=== PATIENT | female | born 1945 | race Caucasian/White ===

== ENCOUNTER → 2016-09-28 | Outpatient (CLI) | payer OTHER, MEDICARE | LOC: FIMAGING 15:24 | PROVIDERS: ATTEND Orthopaedic Surgery | DX: M25.411 Effusion, right shoulder (principal); M24.011 Loose body in right shoulder; M75.81 Other shoulder lesions, right shoulder; M19.011 Primary osteoarthritis, right shoulder ==

== ENCOUNTER 2016-11-20 05:50 | Inpatient (IN) | payer OTHER, MEDICARE ==
[2016-11-14 09:42] LABS: % IMMATURE GRANULYOCYTES 0.2 % (0.0-1.1); ABSOLUTE IMMATURE GRANULOCYTES 0.01 10^3/uL (0.00-0.10); ADD DIFF? NO; ADD MORPH? NO; ADD SCAN? NO; ATYPICAL LYMPHOCYTE FLAG 10 (0-99); FRAGMENT RBC FLAG 0 (0-99); LEFT SHIFT FLG 0 (0-99); LIPEMIA HEMOLYSIS FLAG 80 (0-99); MEAN CELL HEMOGLOBIN 29.5 pg (27.9-34.1); MEAN CELL HEMOGLOBIN CONCENTR. 33.3 g/dL (32.4-36.7); MEAN CELL VOLUME 88.6 fL (81.5-99.8); MEAN PLATELET VOLUME 11.2 fL (8.7-11.7); PLATELET CLUMPS FLAG 10 (0-99); PLATELET COUNT 223 10^3/uL (150-400); RED BLOOD CELL COUNT 4.74 10^6/uL (4.18-5.33); RED CELL DISTRIBUTION WIDTH 12.8 % (11.5-15.2)
--- NOTE | 2016-11-19 19:19 | GHP ---
[f rep st] PREOP HISTORY AND PHYSICAL DATE OF ADMISSION: 11/20/2016 HISTORY OF PRESENT ILLNESS: The patient is a 71-year-old female who presents with progressive right shoulder osteoarthritis. She has pain, progressive limitation of motion and function, and this imp acts her activities of daily living. She has had physical therapy and responded just partially with regard to comfort and function. She has deep pain. She has limited range of motion. She has trie d appropriate conservative measures at this point. An MRI shows that she does have cuff tendinosis. No full-thickness tear. Advanced severe osteoarthritis of the glenohumeral joint. She has had a successful left total shoulder that is comfortable and functions well. She would like to proceed wi th a right total shoulder arthroplasty. PAST MEDICAL HISTORY: No current medical problems. MEDICATIONS: She is using Effexor 150 mg XR daily. SOCIAL HISTORY: She is a nonsmoker. ALLERGIES: She has no known drug allergies. PAST SURGICAL HISTORY: Her surgeries include a left total shoulder arthroplasty, a right knee scope , cervical fusions at C4-5, C5-6, and C6-7, appendectomy, a wrist arthroplasty. REVIEW OF SYSTEMS: Negative for cardiopulmonary disease. PHYSICAL EXAM: GENERAL: The patient is a well-developed, well-nourished female, in no apparent dis tress. HEAD AND NECK: Normocephalic, atraumatic. CHEST: Clear. CARDIOVASCULAR: Regular rate an d rhythm. ABDOMEN: Soft. NEUROLOGICAL: She is alert, oriented x3. MUSCULOSKELETAL: Examination of the right shoulder shows about 120 degrees of forward flexion. She has about 30 degrees of exte rnal rotation. There is glenohumeral crepitus and pain. She has some discomfort on initiation of a bduction, external rotation, and supraspinatus testing. She has limited abduction of about 60 degre es. NEUROVASCULAR: Intact. SKIN: Intact. IMAGING: X-ray show us flattening of the humeral head, eems-mg-[id number] contact and degenerative lippin g, inferior osteophytes. IMPRESSIONS: Right shoulder osteoarthritis. PROCEDURE: Right shoulder arthroplasty. CONSENT: Benefits and risks of surgery have been reviewed with the patient, including the risk of i nfection, damage to blood vessels or nerves, failure or loosening of the components and need for rev ision, instability of the shoulder joint or limited motion. She has done well with her opposite dennis franklin. She has signed a consent form, wishes to proceed. /[id number]/MODL
[2016-11-20] MEDS ORDERED: ceFAZolin 2 GM/DEXTROSE 100 ML IV ONE (06:00)
[2016-11-20] MEDS ORDERED: CHLORHEXIDINE GLUC HIBICLENS 118 ML BTL TP ONE (06:00)
[2016-11-20] MEDS ORDERED: LIDOCAINE 1% 5 ML SDV ID PRN (06:20)
[2016-11-20] MEDS ORDERED: LR 1,000 ML IV ONE (06:20)
[2016-11-20] MEDS ORDERED: LIDOCAINE 1% 5 ML SDV ONE (06:23)
[2016-11-20] MEDS ORDERED: BUPIVACAINE/EPI 0.5% 30 ML SDV ONE ×2 (06:27→06:45)
[2016-11-20] MEDS ORDERED: POLYMYXIN B SULFATE 500,000 UNIT/10 ML SYR IRR ONE ×2 (06:28→06:45)
[2016-11-20] MEDS ORDERED: BACITRACIN 50,000 UNITS/10 ML SYR IRR ONE ×2 (06:28→06:45)
[2016-11-20] MEDS ORDERED: fentaNYL 100 MCG/2 ML INJ ONE ×2 (06:59→09:24)
[2016-11-20] MEDS ORDERED: MIDAZOLAM 2 MG/2 ML VIAL ONE ×2 (07:01→07:07)
[2016-11-20] MEDS ORDERED: PROPOFOL/EMULSION 500 MG/50 ML BOTTLE IV ONE (07:02)
[2016-11-20] MEDS ORDERED: ROPI/epINEPH/KETOROLAC IU ONE (08:00)
[2016-11-20] MEDS ORDERED: ONDANSETRON 4 MG/2 ML VIAL ONE (08:25)
[2016-11-20] MEDS ORDERED: clonIDINE 1 MG/10 ML VIAL EP ONE (08:25)
[2016-11-20] MEDS ORDERED: ROCURONIUM 50 MG/5 ML VIAL ONE (08:25)
[2016-11-20] MEDS ORDERED: PHENYLEPHRINE HCL 100 MCG/ML SYR ONE (08:25)
[2016-11-20] MEDS ORDERED: ACETAMINOPHEN 325 MG TAB PO PRN (09:56)
[2016-11-20] MEDS ORDERED: LACTULOSE 20 GM/30 ML UDCUP PO PRN (09:56)
[2016-11-20] MEDS ORDERED: POLYETHYLENE GLYCOL 3350 17 GM PKT PO PRN (09:56)
[2016-11-20] MEDS ORDERED: MAGNESIUM HYDROXIDE 30 ML UDCUP PO PRN (09:56)
[2016-11-20] MEDS ORDERED: OXYCODONE/APAP 5/325 TAB PO PRN (09:56)
[2016-11-20] MEDS ORDERED: TEMAZEPAM 15 MG CAP PO PRN (09:56)
[2016-11-20] MEDS ORDERED: BISACODYL 10 MG SUPP PR PRN (09:56)
[2016-11-20] MEDS ORDERED: ONDANSETRON 4 MG/2 ML VIAL IVP PRN (09:56)
[2016-11-20] MEDS ORDERED: D5W 1/2 NS W/ 20 KCl/L 1,000 ML IV SCH (10:00)
--- NOTE | 2016-11-20 10:21 | GOP ---
[f rep st] OPERATIVE REPORT DATE OF OPERATION: 11/20/2016 SURGEON: Jerad Kearns MD STORY WRITER: Thien Kruger, Chan.[email or web address].Brittany., L.S.A. ANESTHESIOLOGIST: Daphne Johnson D.O. PREOPERATIVE DIAGNOSIS: Right shoulder osteoarthritis. POSTOPERATIVE DIAGNOSIS: Right shoulder osteoarthritis. PROCEDURE PERFORMED: Right total shoulder arthroplasty. FINDINGS: DESCRIPTION OF PROCEDURE: The patient was taken to the operating room, placed supine on the operati ng table and placed under general anesthetic. She was on a standard operating table that we placed in a semi Bojorquez position with a Sol hogshead dumper and we moved her body to the right side of the table. All bony prominences were well padded. I used a padded post along her right chest wall. T he positioning of the table allowed extension of her shoulder. The shoulder and arm were prepped an d draped free in the usual fashion with a chlorhexidine prep. I made a deltopectoral incision from the coracoid process to a point in the anterior midline of the upper humerus and dissected through subcutaneous tissue. I mobilized this layer and found the delto pectoral groove. The cephalic vein was retracted laterally with the deltoid and blunt dissection ca rried down to the humeral head. I incised through the deltopectoral fascia next to the conjoined te ndon and exposed the humeral head. I localized the biceps just above the pectoralis, opened the she ath and I tenodesed the biceps by placing a #2 FiberWire through the tendon and through the surround ing sheath, transected the tendon just above that and ultimately removed the tendon from the superio r labrum too. On the lesser tuberosity, I made a vertical cut through capsule as well as the subsca pularis tendon. I carried this incision into the rotator interval. I tagged the edge of this. I d ebrided the undersurface of this layer of scarred capsule and synovitis. I mobilized the subscapula ris as a muscle tendon unit with good mobility, dissecting along the anterior glenoid a bit. I then used a neck cutting guide to design a humeral neck cut with about 20 degrees of retroversion. Afte r this cut was made, I was able to retract the head laterally and by finger dissection and palpation of the nerve inferior to the capsule, I did inferior capsular release. This allowed me to bring th e humeral head up into the wound. I entered the canal with an awl. I reamed with an 8 mm reamer, 9 mm reamer and 10 mm reamer. I broached with an 8 and a 10. The 10 was a very good fit and I left the broach in place to protect the bone. I placed anterior and posterior glenoid retractors. I ovidio rided degenerative labrum. I sized the glenoid at a 40 and I did appropriate surface reaming and PE G hole preparation. These were dried. I used a 40 crosslink polyethylene anchor peg glenoid with a little cement in the peripheral peg holes. This was an excellent fit. I then drilled anterior hum eral neck bone transosseous tunnels so that I could place four #2 FiberWire. I removed the trial, I irrigated the canal with antibiotics and I placed the size 10 stem in 20 degrees of retroversion. This was an excellent Press-Fit stem. I then did trial reductions. I chose a size 44 head eccentric 18 mm thick and this was placed over the trunnion and the shoulder was reduced. I then mattressed the FiberWire sutures through the ante rior subscapularis and this provided a nice soft tissue repair and allowed 20-30 degrees of external rotation. I also repaired the rotator interval with hpvoqb-hr-qjgro suture of #2 FiberWire. Irrigation was used. I closed the wound in layers with the deltoid fascia as well as subcutaneous w ith 3-0 Monocryl, and the skin was closed with a running 3-0 Monoderm reinforced with glue, Telfa an d an op site. The wound was dried so I did not place a drain. There were no complications. The estimated blood loss was 25 mL. No drains. Specimens include excised bone. All counts correct . The patient was taken in stable condition to recovery. She is in a sling. SUMMARY OF COMPONENTS: This is a DePuy global shoulder. The humeral component is a size 10 Press-F it. The head is a 44 x 18 eccentric head. The glenoid is 40 cross length polyethylene anchor peg c omponent. My special education educational assistant, Thien Kruger, was a medical necessity for this total shoulder for soft tiss ue retraction and arm positioning. OPERATIVE INDICATIONS: The patient is a 71-year-old female who has had progressive severe osteoarth ritis of the right shoulder. This is impacting her activities of daily living. She has pain and li mited motion. She has done appropriate therapies, including extensive physical therapy. X-rays dennis w tqtd-[id number] glenohumeral wear. MRI shows her extensive glenohumeral arthritis with some cuff ten dinosis, but no full-thickness tear. She will proceed now for a right total shoulder arthroplasty. /[id number]/MODL
[2016-11-20] MEDS: KETOROLAC 15 MG/1 ML SDV IVP SCH ×2 (12:11→17:19)
[2016-11-20] MEDS: ceFAZolin 2 GM/DEXTROSE 100 ML IV SCH ×2 (14:10→22:07)
[2016-11-20 14:24] VITALS: RESP 16
[2016-11-20] MEDS ORDERED: DOCUSATE SODIUM 100 MG CAP PO SCH (21:00)
[2016-11-20] MEDS: SENNOSIDES/DOCUSATE SODIUM TAB PO SCH (22:10)
[2016-11-20] MEDS: CHOLECALCIFEROL VIT D3 2,000 UNITS TAB/CAP PO SCH (22:10)
[2016-11-21] MEDS: KETOROLAC 15 MG/1 ML SDV IVP SCH ×2 (00:14→06:23)
[2016-11-21] MEDS: SENNOSIDES/DOCUSATE SODIUM TAB PO SCH (08:20)
[2016-11-21] MEDS: CHOLECALCIFEROL VIT D3 2,000 UNITS TAB/CAP PO SCH (08:21)
[2016-11-21] MEDS: HYDROCODONE/APAP 5/325 TAB PO PRN ×2 (08:24→12:42)
--- NOTE | 2016-11-21 08:36 | SOAPPROG ---
SOAP Progress Note Assessment/Plan: Assessment: 11/21/16 POD#1 R TSA, pain controlled with hydrocodone Plan: 11/21/16 08:34 PT/OT then home, home PT then out pt, [facility], sling Objective: Vital Signs Temp Pulse Resp BP Pulse Ox 37.0 C 56 L 16 128/74 H 97 11/21/16 07:37 11/21/16 07:37 11/21/16 07:37 11/21/16 07:37 11/21/16 07:37 Laboratory Results 11/14/16 09:20 11/20/16 11/21/16 11/22/16 05:59 05:59 05:59 Intake Total 3260 Output Total 2240 Balance 1020 ICD10 Worksheet Patient Problems: Problems Problem Status Onset Degenerative joint disease of shoulder region Acute
[2016-11-21] MEDS ORDERED: VENLAFAXINE XR 150 MG CAP PO SCH (09:00)
--- NOTE | 2016-11-21 09:58 | PDIAF ---
- Diagnosis Code Status: Full Code - Medication Management Discharge Medications: Medications to Continue on Transfer Herbals/Supplements -Info Only 1 ea PO DAILY #0 ea 01/20/14 [Last Taken 11/13/16 ] Venlafaxine Xr [Effexor Xr] 150 mg PO DAILY #0 cap 01/20/14 [Last Taken 05:30] Cholecalciferol (Vitamin D3) [Vitamin D3] 2,000 unit PO BID 11/08/16 [Last Taken 11/13/16] Multivitamins [Multivitamin (*)] 1 each PO DAILY 11/08/16 [Last Taken 11/13/16] Hydrocodone/APAP 5/325 [[place] 5/325 (*)] 1 - 2 tab PO Q3HRS PRN #0 tab 11/21/16 [Last Taken Unknown] Discharge Medications: Refer to the Discharge Home Medication list for PRN reason. - Orders Services needed: Home Care, Physical Therapy Home Care Face to Face: I certify that this patient was under my care and that I had the required hlnw-wl-[id number] encounter meeting the encounter requirements on the discharge day. My findings support the fact that the patient is homebound as defined in CMS Chapter 7 Medicare Benefits Manual 30.1.1, The condition of the patient is such that there exists a normal inability to leave home and consequently, leaving home would require a considerable and taxing effort. - Follow Up Care Current Providers and Referrals: Arley Pantoja MD [Primary Care Provider] -
--- NOTE | 2016-11-21 12:09 | PDIAF ---
- Diagnosis Code Status: Full Code - Medication Management Discharge Medications: Medications to Continue on Transfer Herbals/Supplements -Info Only 1 ea PO DAILY #0 ea 01/20/14 [Last Taken 11/13/16 ] Venlafaxine Xr [Effexor Xr] 150 mg PO DAILY #0 cap 01/20/14 [Last Taken 05:30] Cholecalciferol (Vitamin D3) [Vitamin D3] 2,000 unit PO BID 11/08/16 [Last Taken 11/13/16] Multivitamins [Multivitamin (*)] 1 each PO DAILY 11/08/16 [Last Taken 11/13/16] Hydrocodone/APAP 5/325 [[place] 5/325 (*)] 1 - 2 tab PO Q3HRS PRN #0 tab 11/21/16 [Last Taken Unknown] Discharge Medications: Refer to the Discharge Home Medication list for PRN reason. - Orders Services needed: Home Care, Physical Therapy Home Care Face to Face: I certify that this patient was under my care and that I had the required [id number]-oe-[id number] encounter meeting the encounter requirements on the discharge day. My findings support the fact that the patient is homebound as defined in CMS Chapter 7 Medicare Benefits Manual 30.1.1, The condition of the patient is such that there exists a normal inability to leave home and consequently, leaving home would require a considerable and taxing effort. Additional: For home PT to start 11/21/16, COntinue the pateint with passive flexion and exteranl rotation exercises. In the erect postiion, the patient can use overhead colin to increase passive flexion and continue to use the arm for gentle living activities. Dismiss the patient once 90-120 degrees of passive flexion and external rotation of 10-15 degrees is achieved. Instruct patient to continue exercises 3-4 times a day. - Follow Up Care Current Providers and Referrals: Arley Pantoja MD [Primary Care Provider] - Jerad Kearns MD [Medical Doctor] -
[2016-11-21 12:49] VITALS: BP 139/79; PULSE 60; TEMP 98.1; O2SAT 94
== END 2016-11-21 13:57 | disposition home health service (06) | DRG 483 ==
LOC: F3N 05:50
PROVIDERS: ADMIT Family Medicine; ATTEND Orthopaedic Surgery
PROC: 0RRJ0JZ Replacement of Right Shoulder Joint with Synthetic Substitute, Open Approach (ICD-10-PCS; principal; 2016-11-20 07:15)
DX: M19.011 Primary osteoarthritis, right shoulder (principal); Z98.1 Arthrodesis status
CPT/HCPCS: 97161-GP; 97165-GO; C1713; G8978-GP-CI; G8979-GP-CI; G8980-GP-CI; G8987-GO-CI; G8988-GO-CI; G8989-GO-CI; J0171; J0690; J0735; J1885; J2250; J2370; J2405; J2704; J2795; J3010

== ENCOUNTER → 2017-02-16 | Outpatient (CLI) | payer OTHER, MEDICARE | LOC: BMCIMAGING 15:11 | PROVIDERS: ATTEND Family Medicine | DX: Z12.31 Encounter for screening mammogram for malignant neoplasm of breast (principal); Z80.3 Family history of malignant neoplasm of breast | CPT/HCPCS: G0202 ==

== ENCOUNTER → 2017-03-07 | Outpatient (CLI) | payer OTHER, MEDICARE | LOC: BRMIMAGING 11:09 | PROVIDERS: ATTEND Family Medicine | DX: Z13.820 Encounter for screening for osteoporosis (principal); Z78.0 Asymptomatic menopausal state ==

== ENCOUNTER 2017-06-06 11:17 | Inpatient (IN) | payer OTHER, MEDICARE ==
[2017-06-06] MEDS ORDERED: ONDANSETRON 4 MG/2 ML VIAL IVP PRN (12:11)
[2017-06-06] MEDS ORDERED: BISACODYL 10 MG SUPP PR PRN (12:45)
[2017-06-06] MEDS ORDERED: MAGNESIUM HYDROXIDE 30 ML UDCUP PO PRN (12:45)
[2017-06-06] MEDS ORDERED: POLYETHYLENE GLYCOL 3350 17 GM PKT PO PRN (12:45)
[2017-06-06] MEDS ORDERED: LACTULOSE 20 GM/30 ML UDCUP PO PRN (12:45)
[2017-06-06] MEDS: HYDROmorphONE/DILAUDID 1 MG/ML INJ IVP PRN ×6 (13:13→23:03)
[2017-06-06 13:24] LABS: PLATELET COUNT 200 10^3/uL (150-400)
[2017-06-06] MEDS ORDERED: ALTEPLASE 2 MG VIAL IVP PRN (16:36)
--- NOTE | 2017-06-06 16:39 | PDGENHP ---
History and Physical - Chief Complaint Acute knee pain - History of Present Illness Primary care provider: Dr. Arley Pantoja Primary orthopedist: Dr. Jerad Kearns HPI: 71-year-old female presenting with acute knee pain characterized as sharp with associated swelling, located in the right knee, with onset of symptoms on the day prior to this presentation and duration persistent thereafter. She reports the symptoms are exacerbated by bearing weight on the leg, reducing her overall ambulatory bloody. She reports that there was marginal improvement with joint aspiration. She has been attempting to manage the pain with Rodanthe at home, but this has been ineffective. She underwent a meniscal surgery 1 week ago and was initially doing very well postoperatively, x5 days, and then began experiencing the aforementioned symptoms. She was seen in the outpatient setting by Dr. Jerad Kearns on 06/05/2017, aspirate was taken, and the results were available today which demonstrated likely septic arthritis. History Information - Allergies/Home Medication List Allergies/Adverse Reactions: No Known Allergies Allergy (Verified 11/10/16 13:29) Home Medications: Multivitamins [Multivitamin (*)] 1 each PO DAILY 11/08/16 [Last Taken 06/05/17] Cholecalciferol Vit D3 [Vitamin D3 2000 units tab (OTC)] 2,000 units PO BID 08/22 [Last Taken 06/05/17] Venlafaxine Xr [Effexor Xr 75MG (*)] 150 mg PO DAILY 06/06/17 [Last Taken ] I have personally reviewed and updated: family history, medical history, social history, surgical history - Past Medical History Additional medical history: Severe osteoarthritis. Depression. Prediabetes - Surgical History Additional surgical history: Right total shoulder arthroscopy. Left total shoulder arthroscopy. Right total knee arthroscopy. C4-C7 fusion. Appendectomy. Risk surgery. Meniscal surgery 1 week ago right leg - Family History Additional family history: No family history of venous thromboembolism, mother with breast cancer - Social History Smoking Status: Never smoked Alcohol Use: Occasionally Drug Use: None Additional social history: Normally independent in her ADLs Review of Systems Review of Systems: ROS: 10pt was reviewed & negative except for what was stated in HPI & below Muscolosketal: Reports: joint swelling (Right knee pain) Physical Exam Physical Exam: Temp Pulse Resp BP Pulse Ox 36.4 C 65 20 99/61 L 93 06/06/17 16:04 06/06/17 16:04 06/06/17 16:04 06/06/17 16:04 06/06/17 16:04 O2 (L/minute) 2 Constitutional: no apparent distress, appears nourished, uncomfortable (Right knee), No not in pain (Right knee) Eyes: PERRL, anicteric sclera, EOMI Ears, Nose, Mouth, Throat: moist mucous membranes, hearing normal, ears appear normal, no oral mucosal ulcers Cardiovascular: regular rate and rhythym, no murmur, rub, or gallop, No edema Respiratory: no respiratory distress, no rales or rhonchi, clear to auscultation Gastrointestinal: normoactive bowel sounds, soft, non-tender abdomen, no palpable masses Genitourinary: no bladder fullness, no bladder tenderness Skin: other (No erythema or ecchymoses extending beyond the bandage site) Musculoskeletal: other (Limited range of motion right knee secondary to pain, limited flexion at the right hip secondary to pain in the knee, full range of motion right ankle) Neurologic: AAOx3, sensation intact bilaterally (Right distal lower extremity), No facial droop Psychiatric: interacting appropriately, not anxious, not encephalopathic, thought process linear Lab Data & Imaging Review 06/06/17 12:43 06/06/17 12:43 WBC 10.04 10^3/uL (3.80-9.50) H 06/06/17 12:43 RBC 4.33 10^6/uL (4.18-5.33) 06/06/17 12:43 Hgb 12.8 g/dL (12.6-16.3) 06/06/17 12:43 Hct 37.0 % (38.0-47.0) L 06/06/17 12:43 MCV 85.5 fL (81.5-99.8) 06/06/17 12:43 MCH 29.6 pg (27.9-34.1) 06/06/17 12:43 MCHC 34.6 g/dL (32.4-36.7) 06/06/17 12:43 RDW 14.1 % (11.5-15.2) 06/06/17 12:43 Plt Count 200 10^3/uL (150-400) 06/06/17 12:43 MPV 11.9 fL (8.7-11.7) H 06/06/17 12:43 Neut % (Auto) 89.6 % (39.3-74.2) H 06/06/17 12:43 Lymph % (Auto) 3.8 % (15.0-45.0) L 06/06/17 12:43 [place] % (Auto) 6.0 % (4.5-13.0) 06/06/17 12:43 Eos % (Auto) 0.0 % (0.6-7.6) L 06/06/17 12:43 Baso % (Auto) 0.2 % (0.3-1.7) L 06/06/17 12:43 Nucleat RBC Rel Count 0.0 % (0.0-0.2) 06/06/17 12:43 Absolute Neuts (auto) 9.00 10^3/uL (1.70-6.50) H 06/06/17 12:43 Absolute Lymphs (auto) 0.38 10^3/uL (1.00-3.00) L 06/06/17 12:43 Absolute Monos (auto) 0.60 10^3/uL (0.30-0.80) 06/06/17 12:43 Absolute Eos (auto) 0.00 10^3/uL (0.03-0.40) L 06/06/17 12:43 Absolute Basos (auto) 0.02 10^3/uL (0.02-0.10) 06/06/17 12:43 Absolute Nucleated RBC 0.00 10^3/uL (0-0.01) 06/06/17 12:43 Immature Gran % 0.4 % (0.0-1.1) 06/06/17 12:43 Immature Gran # 0.04 10^3/uL (0.00-0.10) 06/06/17 12:43 Sodium 135 mEq/L (134-144) 06/06/17 12:43 Potassium 4.4 mEq/L (3.5-5.2) 06/06/17 12:43 Chloride 100 mEq/L (97-110) 06/06/17 12:43 Carbon Dioxide 29 mEq/l (22-31) 06/06/17 12:43 Anion Gap 6 mEq/L (8-16) L 06/06/17 12:43 BUN 19 mg/dL (7-23) 06/06/17 12:43 Creatinine 0.5 mg/dL (0.6-1.0) L 06/06/17 12:43 Estimated GFR > 60 06/06/17 12:43 Glucose 141 mg/dL (70-100) H 06/06/17 12:43 Calcium 9.6 mg/dL (8.5-10.4) 06/06/17 12:43 Assessment & Plan Assessment: 71-year-old female presents with suspected septic arthritis Plan: 1. Septic arthritis. Acute, new problem this provider, further workup indicated. Suspected, evidenced [place] [address], RBC count of 9000, 98% segmented neutrophils -Gram stain with white blood cells, culture pending -get CBC/Blood Cx -postop day [address] Jerad Kearns -infectious Disease consultation appreciated -continue on IV vancomycin -pain management with IV and oral Dilaudid, bowel regimen ordered -physical and occupational therapy, evaluate for home care versus intermediate facility -appreciate ongoing orthopedics consultation and wound recommendations 2. Depression. Chronic, no recent exacerbations, continue venlafaxine 3. Pre-DM. Reviewed outside records (05/22/17 A1c 6.1%, Cr 0.7) -reassess BMP Diet. Regular Prophylaxis. High risk patient, SCDs today and Lovenox 40 beginning tomorrow Code. Full Disposition. Anticipated discharge is 06/07, pending therapy evaluations as outlined above, if patient requires more intensive therapy in order to facilitate a safe discharge, plans will be adjusted tomorrow. Discussed with Cecy Mcadams, hospitalist provider, she has assigned patient to me for evaluation.
[2017-06-06] MEDS: ACETAMINOPHEN 325 MG TAB PO PRN (18:34)
[2017-06-06] MEDS ORDERED: IBUPROFEN 600 MG TAB PO ONE (19:39)
[2017-06-06] MEDS: CHOLECALCIFEROL VIT D3 2,000 UNITS TAB/CAP PO SCH (19:59)
[2017-06-06] MEDS: SENNOSIDES/DOCUSATE SODIUM TAB PO SCH (19:59)
[2017-06-06] MEDS: HYDROmorphONE/DILAUDID 2 MG TAB PO PRN (21:08)
[2017-06-06] MEDS: ceFAZolin 2 GM/DEXTROSE 100 ML IV SCH (22:23)
--- NOTE | 2017-06-07 00:01 | GCON ---
[f rep st] CONSULTATION INFECTIOUS DISEASES CONSULTATION DATE OF CONSULTATION: 06/06/2017 REFERRING PHYSICIAN: Jerad Kearns MD REASON FOR CONSULTATION: Right knee postoperative infection. HISTORY OF PRESENT ILLNESS: Patient is a 71-year-old female, who underwent arthroscopic debridement of the right knee for meniscal disease approximately 1 week ago. Patient was doing well postoperativ france until yesterday when she developed increasing right knee pain with swelling. She did not note ov erlying erythema. She noted a small drop of blood from one of her surgical incisions, but no purulen ce. She was seen by Dr. Kearns yesterday and noted to have a knee effusion. Her knee effusion was asp irated, yielding 57,189 white blood cells with 98% neutrophils. Gram stain was negative of that spec imen with cultures now showing growth of Staphylococcus aureus. This morning, patient had progressiv e pain in her knee such that it limited weightbearing. Based on the synovial fluid findings, patient was taken for incision and drainage, which was performed in an outpatient surgery center earlier topino singh. Postoperatively, the patient had significant pain requiring hospitalization. She has not experi enced fevers, chills, or constitutional symptoms. No nausea, vomiting, or diarrhea. No prior histor y of significant infection or MRSA. Patient received a dose of ceftriaxone earlier today at the [facility]. Given the above findings, I am now asked to assist in her ongoing managem ent. PAST MEDICAL HISTORY: Depression. PAST SURGICAL HISTORY: As above, bilateral shoulder replacement, cervical fusion. CURRENT MEDICATIONS: Ceftriaxone 2 g x1 at surgery center, vitamin D 2000 units p.o. b.i.d., Lovenox 40 mg subcu daily, Dilaudid as needed for pain, multivitamin p.o. daily, Senokot 1-2 p.o. b.i.d., Ef fexor XR 150 mg p.o. daily. ALLERGIES: No known drug allergies. SOCIAL HISTORY: Patient does not smoke and rarely uses alcohol. No history of drug use. FAMILY HISTORY: Diabetes mellitus. REVIEW OF SYSTEMS: Outside that noted in the HPI, remainder of 10-system review is unremarkable. PHYSICAL EXAMINATION: VITAL SIGNS: Temperature 36.4, heart rate 65, respiratory rate 20, blood pres sure 99/61, oxygen saturation 93% on 2 L. GENERAL: Patient is well nourished and well developed, in no acute distress. She appears nontoxic. HEENT: There is no scleral icterus, conjunctival injecti on, or conjunctival petechiae. Oropharynx is clear without lesions. Dentition is in good repair. T here is no nasal discharge. There is no tenderness over the frontal, maxillary, or mastoid area. NE CK: Supple without lymphadenopathy or palpable thyromegaly. CHEST: Clear to auscultation bilateral ly without adventitious sounds. Respiratory effort is normal. CARDIOVASCULAR: Regular rate and rhy thm without murmurs, gallops, or rubs. ABDOMEN: Soft, nontender, nondistended. There is no palpabl e organomegaly. Bowel sounds are present. MUSCULOSKELETAL: The right knee is dressed postoperative ly. ROBERT drain x2 in place with bloody output. SKIN: No rashes are present. No stigmata of endocard itis are present. SKIN: Warm and dry to touch. NEUROLOGIC: Patient is alert and interacts appropr iately with examiner. Cranial nerves 2-12 are grossly intact. Sensation is grossly intact. LYMPHAT ICS: No cervical or supraclavicular nodes palpable. LABORATORY DATA: White blood cell count 10.0, hematocrit 37.0, platelets 200, neutrophils 90%. Seru m creatinine 0.5. Synovial fluid findings as outlined in the HPI. Synovial fluid culture from 06/05 showing growth of Staphylococcus aureus with susceptibility pending. IMPRESSION: Right knee septic arthritis post arthroscopy due to Staphylococcus aureus: Patient is n ow status post incision and drainage. Most likely, this will be methicillin-sensitive Staphylococcus aureus as no clear risk factors for methicillin-resistant Staphylococcus aureus other than surgical procedure. Will treat with cefazolin pending culture data. Anticipate 4-week course of IV antibioti cs. RECOMMENDATIONS: 1. Cefazolin 2 g IV q.8 hours. 2. PICC line in a.m. 3. Plan 4 weeks of IV antibiotic therapy post incision and drainage; discharge planning was informed of patient's need for IV antibiotics. 4. Risks and benefits of PICC line and IV antibiotic use were discussed with patient today. Thank you for this consultation. We will continue to follow patient with you. /[id number]/MODL
[2017-06-07] MEDS: HYDROmorphONE/DILAUDID 2 MG TAB PO PRN (02:54)
[2017-06-07] MEDS: HYDROmorphONE/DILAUDID 1 MG/ML INJ IVP PRN ×2 (02:55→04:57)
[2017-06-07] MEDS: ceFAZolin 2 GM/DEXTROSE 100 ML IV SCH ×3 (04:57→22:08)
[2017-06-07 05:08] LABS: PLATELET COUNT 189 10^3/uL (150-400)
--- NOTE | 2017-06-07 07:39 | SOAPPROG ---
SOAP Progress Note Assessment/Plan: Assessment: POD#1 wash out for septic right knee, drains are working, knee very painful, cefazolin for staph Plan: 06/07/17 07:36 Abx, continue drains, oral pain meds:oxycodone, toradol is fine with me Objective: Vital Signs Temp Pulse Resp BP Pulse Ox 36.9 C 77 14 98/62 L 97 06/07/17 03:12 06/07/17 03:12 06/07/17 03:12 06/07/17 03:12 06/07/17 03:12 Laboratory Results 06/07/17 04:25 06/07/17 04:25 06/06/17 06/07/17 06/08/17 05:59 05:59 05:59 Intake Total 400 Output Total 1500 Balance -1500 400 ICD10 Worksheet Patient Problems: Problems Problem Status Onset Degenerative joint disease of shoulder region Acute
[2017-06-07] MEDS ORDERED: oxyCODONE IR 5 MG TAB PO PRN (07:53)
[2017-06-07] MEDS ORDERED: Herbals/Supplements -Info Only PO SCH (09:00)
[2017-06-07] MEDS ORDERED: VENLAFAXINE XR 75 MG CAP PO SCH (09:00)
[2017-06-07] MEDS: MULTIVITAMINS 1 EACH TAB PO SCH (09:39)
[2017-06-07] MEDS: CHOLECALCIFEROL VIT D3 2,000 UNITS TAB/CAP PO SCH ×2 (09:39→20:14)
[2017-06-07] MEDS: SENNOSIDES/DOCUSATE SODIUM TAB PO SCH ×2 (09:39→20:14)
[2017-06-07] MEDS: ENOXAPARIN 40 MG/0.4 ML SYR SC SCH (09:39)
[2017-06-07] MEDS: KETOROLAC 15 MG/1 ML SDV IVP PRN ×2 (09:39→15:50)
[2017-06-07] MEDS ORDERED: VENLAFAXINE XR 150 MG CAP PO SCH (10:30)
[2017-06-07] MEDS: EFFEXOR 150 MG PO SCH (10:44)
--- NOTE | 2017-06-07 11:33 | PDIAF ---
- Diagnosis Diagnosis: Septic arthritis right knee Code Status: Full Code - Medication Management Discharge Medications: Medications to Continue on Transfer Herbals/Supplements -Info Only 1 ea PO DAILY #0 ea 01/20/14 [Last Taken 11/13/16 ] Multivitamins [Multivitamin (*)] 1 each PO DAILY 11/08/16 [Last Taken 06/05/17] Cholecalciferol Vit D3 [Vitamin D3 2000 units tab (OTC)] 2,000 units PO BID 08/22 [Last Taken 06/05/17] Venlafaxine Xr [Effexor Xr 75MG (*)] 150 mg PO DAILY 06/06/17 [Last Taken ] Signal [employer]r Antibiotics: Cefazolin 2 g IV q.8 hours [employer] Antibiotic Stop Date: 07/03/17 Discharge Medications: Refer to the Discharge Home Medication list for PRN reason. PICC Care - Routine: Yes - Labs/Radiology CBC w/diff Date: 06/11/17 (Weekly Q Sunday) CMP Date: 06/11/17 (Weekly Q Sunday) Call or Fax Lab and Imaging Results to: Dr. Ngo [phone] - Follow Up Care Current Providers and Referrals: Arley Pantoja MD [Primary Care Provider] - Efren Ngo MD [Medical Doctor] - 06/13/17 11:00 am
--- NOTE | 2017-06-07 11:33 | PDIAF ---
- Diagnosis Diagnosis: Septic arthritis right knee Code Status: Full Code - Medication Management Discharge Medications: Medications to Continue on Transfer Herbals/Supplements -Info Only 1 ea PO DAILY #0 ea 01/20/14 [Last Taken 11/13/16 ] Multivitamins [Multivitamin (*)] 1 each PO DAILY 11/08/16 [Last Taken 06/05/17] Cholecalciferol Vit D3 [Vitamin D3 2000 units tab (OTC)] 2,000 units PO BID 08/22 [Last Taken 06/05/17] Venlafaxine Xr [Effexor Xr 75MG (*)] 150 mg PO DAILY 06/06/17 [Last Taken ] Packager Hand Antibiotics: Cefazolin 2 g IV q.8 hours Packager Hand Antibiotic Stop Date: 07/03/17 Discharge Medications: Refer to the Discharge Home Medication list for PRN reason. PICC Care - Routine: Yes - Labs/Radiology CBC w/diff Date: 06/11/17 (Weekly Q Sunday) CMP Date: 06/11/17 (Weekly Q Sunday) Call or Fax Lab and Imaging Results to: Dr. Ngo [phone] - Follow Up Care Current Providers and Referrals: Arley Pantoja MD [Primary Care Provider] - Efren Ngo MD [Medical Doctor] - 06/13/17 11:00 am
--- NOTE | 2017-06-07 11:33 | PDIAF ---
- Diagnosis Diagnosis: Septic arthritis right knee Code Status: Full Code - Medication Management Discharge Medications: Medications to Continue on Transfer Herbals/Supplements -Info Only 1 ea PO DAILY #0 ea 01/20/14 [Last Taken 11/13/16 ] Multivitamins [Multivitamin (*)] 1 each PO DAILY 11/08/16 [Last Taken 06/05/17] Cholecalciferol Vit D3 [Vitamin D3 2000 units tab (OTC)] 2,000 units PO BID 08/22 [Last Taken 06/05/17] Venlafaxine Xr [Effexor Xr 75MG (*)] 150 mg PO DAILY 06/06/17 [Last Taken ] Design And Sales Consultant Antibiotics: Cefazolin 2 g IV q.8 hours Design And Sales Consultant Antibiotic Stop Date: 07/03/17 Discharge Medications: Refer to the Discharge Home Medication list for PRN reason. PICC Care - Routine: Yes - Labs/Radiology CBC w/diff Date: 06/11/17 (Weekly Q Sunday) CMP Date: 06/11/17 (Weekly Q Sunday) Call or Fax Lab and Imaging Results to: Dr. Ngo [phone] - Follow Up Care Current Providers and Referrals: Arley Pantoja MD [Primary Care Provider] - Efren Ngo MD [Medical Doctor] - 06/13/17 11:00 am
--- NOTE | 2017-06-07 11:55 | PCMIDPN ---
Assessment/Plan: Assessment/Plan: * Postoperative right knee septic arthritis due to MSSA status post incision and drainage: Synovial fluid cultures with growth of MSSA. Plan 4 weeks of cefazolin post incision and drainage. Monitor clinical findings over time. Weekly laboratory monitoring with CBC, CMP and CRP. Risk and benefits of PICC line and IV antibiotics discussed with patient today. Will follow up in my office next week post discharge. 06/07/17 11:53 Subjective: Patient with persistent although less prominent knee pain. PICC line placed this a.m.. Objective: Vital Signs Temp Pulse Resp BP Pulse Ox 37.3 C 75 18 104/71 94 06/07/17 11:23 06/07/17 11:23 06/07/17 11:23 06/07/17 11:23 06/07/17 11:23 Laboratory Results 06/07/17 04:25 06/07/17 04:25 06/06/17 06/07/17 06/08/17 05:59 05:59 05:59 Intake Total 600 Output Total 1500 900 Balance -1500 -300 Cefazolin # 1 Synovial fluid with growth of MSSA Blood cultures x2 no growth - Physical Exam General Appearance: alert, no apparent distress EENT: No scleral icterus Cardiac/Chest: regular rate, rhythm Extremities: inflammation (Right knee dressed postoperatively; serosanguineous output in ROBERT bulb) Abdomen: non-tender, No distended ICD10 Worksheet Patient Problems: Problems Problem Status Onset Degenerative joint disease of shoulder region Acute
--- NOTE | 2017-06-07 11:56 | PDIAF ---
- Diagnosis Diagnosis: Septic arthritis right knee Code Status: Full Code - Medication Management Discharge Medications: Medications to Continue on Transfer Herbals/Supplements -Info Only 1 ea PO DAILY #0 ea 01/20/14 [Last Taken 11/13/16 ] Multivitamins [Multivitamin (*)] 1 each PO DAILY 11/08/16 [Last Taken 06/05/17] Cholecalciferol Vit D3 [Vitamin D3 2000 units tab (OTC)] 2,000 units PO BID 08/22 [Last Taken 06/05/17] Venlafaxine Xr [Effexor Xr 75MG (*)] 150 mg PO DAILY 06/06/17 [Last Taken ] Manager Professional Development Antibiotics: Cefazolin 2 g IV q.8 hours Manager Professional Development Antibiotic Stop Date: 07/03/17 Discharge Medications: Refer to the Discharge Home Medication list for PRN reason. PICC Care - Routine: Yes - Labs/Radiology CBC w/diff Date: 06/11/17 (Weekly Q Sunday) CMP Date: 06/11/17 (Weekly Q Sunday) CRP Date: 06/11/17 (Weekly Q Sunday) Call or Fax Lab and Imaging Results to: Dr. Ngo [phone] - Follow Up Care Current Providers and Referrals: Arley Pantoja MD [Primary Care Provider] - Efren Ngo MD [Medical Doctor] - 06/13/17 11:00 am
--- NOTE | 2017-06-07 11:56 | PDIAF ---
- Diagnosis Diagnosis: Septic arthritis right knee Code Status: Full Code - Medication Management Discharge Medications: Medications to Continue on Transfer Herbals/Supplements -Info Only 1 ea PO DAILY #0 ea 01/20/14 [Last Taken 11/13/16 ] Multivitamins [Multivitamin (*)] 1 each PO DAILY 11/08/16 [Last Taken 06/05/17] Cholecalciferol Vit D3 [Vitamin D3 2000 units tab (OTC)] 2,000 units PO BID 08/22 [Last Taken 06/05/17] Venlafaxine Xr [Effexor Xr 75MG (*)] 150 mg PO DAILY 06/06/17 [Last Taken ] Supervisor Education Antibiotics: Cefazolin 2 g IV q.8 hours Supervisor Education Antibiotic Stop Date: 07/03/17 Discharge Medications: Refer to the Discharge Home Medication list for PRN reason. PICC Care - Routine: Yes - Labs/Radiology CBC w/diff Date: 06/11/17 (Weekly Q Sunday) CMP Date: 06/11/17 (Weekly Q Sunday) CRP Date: 06/11/17 (Weekly Q Sunday) Call or Fax Lab and Imaging Results to: Dr. Ngo [phone] - Follow Up Care Current Providers and Referrals: Arley Pantoja MD [Primary Care Provider] - Efren Ngo MD [Medical Doctor] - 06/13/17 11:00 am
[2017-06-07] MEDS: ACETAMINOPHEN 325 MG TAB PO PRN ×2 (12:21→20:14)
--- NOTE | 2017-06-07 14:51 | HOSPPROG ---
Hospitalist Progress Note Assessment/Plan: Assessment: 71-year-old female presents with MSSA septic arthritis Plan: 1. Septic arthritis. Acute, 2/2 MSSA on Cx w/ visibly infected synovial fluid and synovitis per Dr. Kearns -postop day [address] Jerad Kearns -d/w Dr. Ngo, getting PICC today and plan on Ancef 2g q8 x 4 weeks -ongoing drain output and mgmt, area is high risk for reaccumulating fluid, which would increase pain/reduce mobility/reduce clearance of infxn if drains removed prematurely -significant pain today, adjusted to IV toradol + tylenol w/ oxy IR for breakthrough, counseled patient that we will attempt to adjust to orals tomorrow AM (naproxen) to stabilize pain mgmt on orals prior to DC -bowel regimen ordered, encouraged prunes 2. Depression. Chronic, no recent exacerbations, continue venlafaxine 3. Pre-DM. Reviewed outside records (05/22/17 A1c 6.1%, Cr 0.7) -Cr wnl Diet. Regular Prophylaxis. High risk patient, lovenox 40 Code. Full Disposition. Anticipated discharge is uncertain, upgrade to INPT admission status re: anticipated LOS > 48hrs for reasonable medical necessity including ongoing drain output and mgmt by ortho provider, IV pain Rx Subjective: patient attempting TDWB w/ pivot, requesting IV toradol for pain mgmt, no BM Objective: Vital Signs Temp Pulse Resp BP Pulse Ox 37.3 C 75 18 104/71 94 06/07/17 11:23 06/07/17 11:23 06/07/17 11:23 06/07/17 11:23 06/07/17 11:23 Laboratory Results 06/07/17 04:25 06/07/17 04:25 06/06/17 06/07/17 06/08/17 05:59 05:59 05:59 Intake Total 600 Output Total 1500 900 Balance -1500 -300 - Time Spent With Patient Time Spent with Patient: greater than 35 minutes Time Spent with Patient: Greater than 35 minutes spent on this patients care, greater than 50% of time spent counseling, educating, and coordinating care regarding the above mentioned plan. - Physical Exam Constitutional: no apparent distress, appears nourished, uncomfortable, No chronically ill appearing Cardiovascular: regular rate and rhythym, no murmur, rub, or gallop, No edema Respiratory: no respiratory distress, no rales or rhonchi, clear to auscultation Gastrointestinal: normoactive bowel sounds, soft, non-tender abdomen, no palpable masses, No guarding, No distension Musculoskeletal: other (swelling around R knee w/ tenderness, impaired flexion) Neurologic: AAOx3, sensation intact bilaterally, No facial droop Psychiatric: interacting appropriately, not anxious, not encephalopathic, thought process linear ICD10 Worksheet Patient Problems: Problems Problem Status Onset Degenerative joint disease of shoulder region Acute
--- NOTE | 2017-06-07 15:18 | ASMTCMCOM ---
CM Note CM Note Notes: Spoke w/, pt will need IV abx for 4-6 weeks, wants to do them at home, Sheryl bain [facility] notified and met with pt, dc likely tomorrow. Current DC Plan: Home infusion w/[facility] and [facility] for RN/PT Date Signed: 06/07/2017 03:17 PM Electronically Signed By:Ning Cornejo RN
--- NOTE | 2017-06-07 15:18 | ASMTCMCOM ---
CM Note CM Note Notes: Spoke w/, pt will need IV abx for 4-6 weeks, wants to do them at home, Sheryl bain [facility] notified and met with pt, dc likely tomorrow. Current DC Plan: Home infusion w/[facility] and [facility] for RN/PT Date Signed: 06/07/2017 03:17 PM Electronically Signed By:Ning Cornejo RN
--- NOTE | 2017-06-07 15:18 | ASMTCMCOM ---
CM Note CM Note Notes: Spoke w/, pt will need IV abx for 4-6 weeks, wants to do them at home, Sheryl bain [facility] notified and met with pt, dc likely tomorrow. Current DC Plan: Home infusion w/[facility] and [facility] for RN/PT Date Signed: 06/07/2017 03:17 PM Electronically Signed By:Nnig Cornejo RN
--- NOTE | 2017-06-07 15:39 | PDMN ---
Medical Necessity Medical necessity: change to IP; los>2mn for ongoing eval and rx of MSSA septic arthritis R knee, with continued drain output, management by ortho provider, and uncontrolled pain requiring IV pain med; per order and progress note 06/07/17
[2017-06-08] MEDS: KETOROLAC 15 MG/1 ML SDV IVP PRN ×2 (04:05→17:48)
[2017-06-08] MEDS: ceFAZolin 2 GM/DEXTROSE 100 ML IV SCH ×3 (05:40→21:58)
[2017-06-08] MEDS: ACETAMINOPHEN 325 MG TAB PO PRN ×3 (08:22→21:58)
[2017-06-08] MEDS: ENOXAPARIN 40 MG/0.4 ML SYR SC SCH (09:58)
[2017-06-08] MEDS: SENNOSIDES/DOCUSATE SODIUM TAB PO SCH ×2 (09:58→20:49)
[2017-06-08] MEDS: CHOLECALCIFEROL VIT D3 2,000 UNITS TAB/CAP PO SCH ×2 (10:04→20:49)
[2017-06-08] MEDS: MULTIVITAMINS 1 EACH TAB PO SCH (10:04)
[2017-06-08] MEDS: EFFEXOR 150 MG PO SCH (10:04)
--- NOTE | 2017-06-08 10:34 | SOAPPROG ---
SOAP Progress Note Assessment/Plan: Assessment: POD#1 wash out for septic right knee, drains are working, knee very painful, cefazolin for staph POD#2, WBC decreasing, dressing changed Plan: 06/07/17 07:36 Abx, continue drains, oral pain meds:oxycodone, toradol is fine with me 06/08/17 10:31 Abx, will d/c drains tomorrow, and can go home tomorrow , have given Rx for celebrex and oxycodone, home PT would be helpful, asa 81 mg daily after D/c Objective: Vital Signs Temp Pulse Resp BP Pulse Ox 36.9 C 88 18 139/89 H 95 06/08/17 07:58 06/08/17 07:58 06/08/17 07:58 06/08/17 07:58 06/08/17 07:58 Laboratory Results 06/07/17 04:25 06/07/17 04:25 06/07/17 06/08/17 06/09/17 05:59 05:59 05:59 Intake Total 1600 Output Total 1500 3230 530 Balance -1500 -1630 -530 ICD10 Worksheet Patient Problems: Problems Problem Status Onset Degenerative joint disease of shoulder region Acute
--- NOTE | 2017-06-08 13:45 | ASMTCMCOM ---
CM Note CM Note Notes: Spoke w/, pt needs repeat blood cxs drawn, PICC line changed and an echo. Will not dc today, Sheryl from [facility] and Vaishnavi from [facility] notified. Current Discharge Plan: Home w/[facility] and [facility] (RN/PT) Date Signed: 06/08/2017 01:44 PM Electronically Signed By:Ning Cornejo RN
--- NOTE | 2017-06-08 13:45 | ASMTCMCOM ---
CM Note CM Note Notes: Spoke w/, pt needs repeat blood cxs drawn, PICC line changed and an echo. Will not dc today, Sheryl from [facility] and Vaishnavi from [facility] notified. Current Discharge Plan: Home w/[facility] and [facility] (RN/PT) Date Signed: 06/08/2017 01:44 PM Electronically Signed By:Ning Cornejo RN
--- NOTE | 2017-06-08 13:45 | ASMTCMCOM ---
CM Note CM Note Notes: Spoke w/, pt needs repeat blood cxs drawn, PICC line changed and an echo. Will not dc today, Sheryl from [facility] and Vaishnavi from [facility] notified. Current Discharge Plan: Home w/[facility] and [facility] (RN/PT) Date Signed: 06/08/2017 01:44 PM Electronically Signed By:Ning Cornejo RN
--- NOTE | 2017-06-08 14:11 | PCMIDPN ---
Assessment/Plan: 1. Right knee postoperative septic arthritis with concomitant bacteremia secondary to MSSA: The patient's blood cultures just turned positive. Because her PICC line was inserted in the setting of bacteremia, this will need to be removed, a peripheral inserted, and repeat blood cultures drawn. These need to be sterile for at least 24 hours before another PICC line is inserted. Thus, her discharge will be delayed temporarily. She also needs a transthoracic echocardiogram for completeness sake. Continue Ancef. This was explained to the patient and she expressed standing. Subjective: Patient's blood cultures from June 06 just turned positive with 1/4 bottles so far with MSSA. Patient feels well. Denies shaking chills. Explained that her discharged her will be delayed. Please see impression and plan. Tells me that her pain is not well controlled and would like to go back on Toradol. Objective: Ancef 2 g IV q.8 hours Afebrile Vital Signs Temp Pulse Resp BP Pulse Ox 36.4 C 81 18 120/71 97 06/08/17 10:46 06/08/17 10:46 06/08/17 10:46 06/08/17 10:46 06/08/17 10:46 Microbiology 06/06/17 14:33 Blood Panel (PCR) - Final Blood S.aureus Methicillin Suscept. Laboratory Results 06/07/17 04:25 06/07/17 04:25 06/07/17 06/08/17 06/09/17 05:59 05:59 05:59 Intake Total 1600 Output Total 1500 3230 530 Balance -1500 -1630 -530 C-Reactive Protein 127.8 mg/L (<10.0) H 06/07/17 04:25 Blood cultures June 064 bottles MSSA - Physical Exam General Appearance: alert, no apparent distress Respiratory: lungs clear Cardiac/Chest: regular rate, rhythm, No systolic murmur Skin: No rash, No embolic lesions ICD10 Worksheet Patient Problems: Problems Problem Status Onset Degenerative joint disease of shoulder region Acute
--- NOTE | 2017-06-08 16:43 | ECHO ---
[email or web address] [address] [address] Main: [phone] Fax: Transthoracic Echocardiogram Name: RICARDO VIGIL MR#: [id number] Study Date: 06/08/2017 Study Time: 02:51 PM Date of : 1945 Age: 71 year(s) Height: 162.6 cm (64 in.) Weight: 58.97 kg (130 lb.) BSA: 1.63 m2 Gender: Female Examination: Echo Indication: MSSA bacteremia; r/o vegetation Image Quality: Adequate Contrast: Requested by: Mirela Murray BP: 120 mmHg/71 mmHg Heart Rate: 88 bpm Rhythm: Normal sinus rhythm Indication: MSSA bacteremia; r/o vegetation Procedure Staff Webbing Weaver: Estefanía Shields Physician: Nicolás Gonzáles Requesting Provider: Measurements: Chambers Valvular Assessment AV/MV Valvular Assessment TV/PV Normal Normal Normal Name Value Range Name Value Range Name Value Range Ao Zoe (MM): 2.8 cm (2.2 cm-3.7 AV Vmax: 1.51 m/s (1 m/s-1.7 PV Vmax: 0.76 m/s (0.6 m/s-0.9 cm) m/s) m/s) IVSd (2D): 0.9 cm (0.6 cm-1.1 AV maxP mmHg ( - ) PV PGmax: 2 mmHg ( - ) cm) LVOT Vmax: 1.21 m/s (0.7 m/s-1.1 LVDd (2D): 4.1 cm (3.9 cm-5.3 m/s) cm) MV E Vmax: 0.52 m/s ( - ) LVDs (2D): 2.5 cm (2.1 cm-4 MV A Vmax: 0.67 m/s ( - ) cm) MV E/A: 0.78 ( - ) LVPWd (2D): 1.0 cm ( - ) LVEF (BP): 77 % (>=55 %) RVDd(2D): 2.7 cm (1.9 cm-3.8 cmmm) Continued Measurements: Chambers Name Value LADs Lon.8 cm LA Area: 9.4 cm2 LA Volume: 25 ml LA Volume Index: 15.3 ml/m2 RA Area: 10.2 cm2 Findings: Left Ventricle: Patient: RICARDO VIGIL Study Date: 06/08/2017 Page 1 of 2 02:51 PM Normal size left ventricle. No LV hypertrophy. Normal global systolic LV function. EF is 77 %. No regional wall motion abnormality. Normal diastolic LV function. Right Ventricle: Normal size right ventricle. Normal RV function. Left Atrium: The left atrium is normal in size. Right Atrium: The right atrium is normal in size. Mitral Valve: The mitral valve is normal in appearance and function. There is no mitral valve regurgitation. There is no mitral valve vegetation. Aortic Valve: The aortic valve is normal in appearance and function. There is no aortic valve regurgitation. No aortic valve stenosis is present. There is no aortic valve vegetation. Tricuspid Valve: The tricuspid valve is normal in appearance and function. There is no tricuspid valve regurgitation. Pulmonary artery pressure is not obtained due to inadequate TR jet. No tricuspid valve vegetation. Pulmonic Valve: Pulmonary valve not well visualized. Aorta: The aorta is normal. Normal size aortic root measuring 2.8 cm. Pericardium: No pericardial effusion. (No Signature Object) Patient: RICARDO VIGIL Study Date: 06/08/2017 Page 2 of 2 02:51 PM [id number]
--- NOTE | 2017-06-08 16:43 | ECHO ---
[email or web address] [address] [address] Main: [phone] Fax: Transthoracic Echocardiogram Name: RICARDO VIGIL MR#: [id number] Study Date: 06/08/2017 Study Time: 02:51 PM Date of : 1945 Age: 71 year(s) Height: 162.6 cm (64 in.) Weight: 58.97 kg (130 lb.) BSA: 1.63 m2 Gender: Female Examination: Echo Indication: MSSA bacteremia; r/o vegetation Image Quality: Adequate Contrast: Requested by: Mirela Murray BP: 120 mmHg/71 mmHg Heart Rate: 88 bpm Rhythm: Normal sinus rhythm Indication: MSSA bacteremia; r/o vegetation Procedure Staff Elevator Operator: Estefanía Shields Physician: Nicolás Gonzáles Requesting Provider: Measurements: Chambers Valvular Assessment AV/MV Valvular Assessment TV/PV Normal Normal Normal Name Value Range Name Value Range Name Value Range Ao Zoe (MM): 2.8 cm (2.2 cm-3.7 AV Vmax: 1.51 m/s (1 m/s-1.7 PV Vmax: 0.76 m/s (0.6 m/s-0.9 cm) m/s) m/s) IVSd (2D): 0.9 cm (0.6 cm-1.1 AV maxP mmHg ( - ) PV PGmax: 2 mmHg ( - ) cm) LVOT Vmax: 1.21 m/s (0.7 m/s-1.1 LVDd (2D): 4.1 cm (3.9 cm-5.3 m/s) cm) MV E Vmax: 0.52 m/s ( - ) LVDs (2D): 2.5 cm (2.1 cm-4 MV A Vmax: 0.67 m/s ( - ) cm) MV E/A: 0.78 ( - ) LVPWd (2D): 1.0 cm ( - ) LVEF (BP): 77 % (>=55 %) RVDd(2D): 2.7 cm (1.9 cm-3.8 cmmm) Continued Measurements: Chambers Name Value LADs Lon.8 cm LA Area: 9.4 cm2 LA Volume: 25 ml LA Volume Index: 15.3 ml/m2 RA Area: 10.2 cm2 Findings: Left Ventricle: Patient: RICARDO VIGIL Study Date: 06/08/2017 Page 1 of 2 02:51 PM Normal size left ventricle. No LV hypertrophy. Normal global systolic LV function. EF is 77 %. No regional wall motion abnormality. Normal diastolic LV function. Right Ventricle: Normal size right ventricle. Normal RV function. Left Atrium: The left atrium is normal in size. Right Atrium: The right atrium is normal in size. Mitral Valve: The mitral valve is normal in appearance and function. There is no mitral valve regurgitation. There is no mitral valve vegetation. Aortic Valve: The aortic valve is normal in appearance and function. There is no aortic valve regurgitation. No aortic valve stenosis is present. There is no aortic valve vegetation. Tricuspid Valve: The tricuspid valve is normal in appearance and function. There is no tricuspid valve regurgitation. Pulmonary artery pressure is not obtained due to inadequate TR jet. No tricuspid valve vegetation. Pulmonic Valve: Pulmonary valve not well visualized. Aorta: The aorta is normal. Normal size aortic root measuring 2.8 cm. Pericardium: No pericardial effusion. (No Signature Object) Patient: RICARDO VIGIL Study Date: 06/08/2017 Page 2 of 2 02:51 PM [id number]
--- NOTE | 2017-06-08 16:43 | ECHO ---
[email or web address] [address] [address] Main: [phone] Fax: Transthoracic Echocardiogram Name: RICARDO VIGIL MR#: [id number] Study Date: 06/08/2017 Study Time: 02:51 PM Date of : 1945 Age: 71 year(s) Height: 162.6 cm (64 in.) Weight: 58.97 kg (130 lb.) BSA: 1.63 m2 Gender: Female Examination: Echo Indication: MSSA bacteremia; r/o vegetation Image Quality: Adequate Contrast: Requested by: Mriela Murray BP: 120 mmHg/71 mmHg Heart Rate: 88 bpm Rhythm: Normal sinus rhythm Indication: MSSA bacteremia; r/o vegetation Procedure Staff Continuous Improvement Engineer: Estefanía Shields Physician: Nicolás Gonzáles Requesting Provider: Measurements: Chambers Valvular Assessment AV/MV Valvular Assessment TV/PV Normal Normal Normal Name Value Range Name Value Range Name Value Range Ao Zoe (MM): 2.8 cm (2.2 cm-3.7 AV Vmax: 1.51 m/s (1 m/s-1.7 PV Vmax: 0.76 m/s (0.6 m/s-0.9 cm) m/s) m/s) IVSd (2D): 0.9 cm (0.6 cm-1.1 AV maxP mmHg ( - ) PV PGmax: 2 mmHg ( - ) cm) LVOT Vmax: 1.21 m/s (0.7 m/s-1.1 LVDd (2D): 4.1 cm (3.9 cm-5.3 m/s) cm) MV E Vmax: 0.52 m/s ( - ) LVDs (2D): 2.5 cm (2.1 cm-4 MV A Vmax: 0.67 m/s ( - ) cm) MV E/A: 0.78 ( - ) LVPWd (2D): 1.0 cm ( - ) LVEF (BP): 77 % (>=55 %) RVDd(2D): 2.7 cm (1.9 cm-3.8 cmmm) Continued Measurements: Chambers Name Value LADs Lon.8 cm LA Area: 9.4 cm2 LA Volume: 25 ml LA Volume Index: 15.3 ml/m2 RA Area: 10.2 cm2 Findings: Left Ventricle: Patient: RICARDO VIGIL Study Date: 06/08/2017 Page 1 of 2 02:51 PM Normal size left ventricle. No LV hypertrophy. Normal global systolic LV function. EF is 77 %. No regional wall motion abnormality. Normal diastolic LV function. Right Ventricle: Normal size right ventricle. Normal RV function. Left Atrium: The left atrium is normal in size. Right Atrium: The right atrium is normal in size. Mitral Valve: The mitral valve is normal in appearance and function. There is no mitral valve regurgitation. There is no mitral valve vegetation. Aortic Valve: The aortic valve is normal in appearance and function. There is no aortic valve regurgitation. No aortic valve stenosis is present. There is no aortic valve vegetation. Tricuspid Valve: The tricuspid valve is normal in appearance and function. There is no tricuspid valve regurgitation. Pulmonary artery pressure is not obtained due to inadequate TR jet. No tricuspid valve vegetation. Pulmonic Valve: Pulmonary valve not well visualized. Aorta: The aorta is normal. Normal size aortic root measuring 2.8 cm. Pericardium: No pericardial effusion. (No Signature Object) Patient: RICARDO VIGIL Study Date: 06/08/2017 Page 2 of 2 02:51 PM [id number]
--- NOTE | 2017-06-08 18:52 | HOSPPROG ---
Hospitalist Progress Note Assessment/Plan: Assessment: 71-year-old female presents with MSSA septic arthritis c/b MSSA bacteremia Plan: 1. Septic arthritis. Acute, 2/2 MSSA on Cx w/ visibly infected synovial fluid and synovitis per Dr. Kearns -postop day [address] Jerad Kearns, he recommends additional 24hrs of indwelling drains w/ likely removal in AM -significant pain today, adjusted from toradol to celebrex w/o good effect, patient requested to revert back to toradol w/ PRN oxy IR for breakthrough -bowel regimen ordered, encouraged prunes 2. Depression. Chronic, no recent exacerbations, continue venlafaxine 3. Pre-DM. Reviewed outside records (05/22/17 A1c 6.1%, Cr 0.7) -Cr wnl 4. Bacteremia. Acute, new problem, further w/u indicated. MSSA, 2/2 septic joint - get Echo r/o endocarditis - d/w Dr. Murray, she recommends removal of PICC (was placed while patient was bacteremic), place periph, give 24hrs of IV Ancef, repeat BCx, and replace PICC Diet. Regular Prophylaxis. High risk patient, lovenox 40 Code. Full Disposition. Anticipated discharge is uncertain, extended LOS 2/2 development of bacteremia. Subjective: patient w/ poor sleep 2/2 ongoing pain in knee Objective: Vital Signs Temp Pulse Resp BP Pulse Ox 37.4 C 96 20 135/84 H 96 06/08/17 15:25 06/08/17 15:25 06/08/17 15:25 06/08/17 15:25 06/08/17 15:25 Microbiology 06/06/17 14:33 Blood Panel (PCR) - Final Blood S.aureus Methicillin Suscept. Laboratory Results 06/07/17 04:25 06/07/17 04:25 06/07/17 06/08/17 06/09/17 05:59 05:59 05:59 Intake Total 1600 530 Output Total 1500 3230 1730 Balance -1500 -1630 -1200 - Physical Exam Constitutional: no apparent distress, appears nourished, uncomfortable, No not in pain (moderate) Cardiovascular: regular rate and rhythym, no murmur, rub, or gallop, edema ( trace RLE), No tachycardia Respiratory: no respiratory distress, no rales or rhonchi, clear to auscultation Gastrointestinal: normoactive bowel sounds, soft, non-tender abdomen, no palpable masses Skin: other (soft tissue edema RLE) Musculoskeletal: other (R knee joint effusion, drains in place) Neurologic: AAOx3, sensation intact bilaterally Psychiatric: interacting appropriately, not anxious, not encephalopathic, thought process linear ICD10 Worksheet Patient Problems: Problems Problem Status Onset Degenerative joint disease of shoulder region Acute
[2017-06-09] MEDS: KETOROLAC 15 MG/1 ML SDV IVP PRN ×4 (00:20→23:05)
[2017-06-09] MEDS: ACETAMINOPHEN 325 MG TAB PO PRN ×3 (04:44→18:05)
[2017-06-09] MEDS: ceFAZolin 2 GM/DEXTROSE 100 ML IV SCH ×3 (04:44→21:49)
[2017-06-09 04:48] LABS: PLATELET COUNT 190 10^3/uL (150-400)
[2017-06-09] MEDS: ENOXAPARIN 40 MG/0.4 ML SYR SC SCH (09:03)
[2017-06-09] MEDS: EFFEXOR 150 MG PO SCH (09:06)
[2017-06-09] MEDS: CHOLECALCIFEROL VIT D3 2,000 UNITS TAB/CAP PO SCH ×2 (09:07→20:31)
[2017-06-09] MEDS: MULTIVITAMINS 1 EACH TAB PO SCH (09:07)
--- NOTE | 2017-06-09 09:07 | SOAPPROG ---
SOAP Progress Note Assessment/Plan: Assessment: POD#1 wash out for septic right knee, drains are working, knee very painful, cefazolin for staph POD#2, WBC decreasing, dressing changed POD#3, still painful, but less so, drains removed, blood cult pos, so line removed Plan: 06/07/17 07:36 Abx, continue drains, oral pain meds:oxycodone, toradol is fine with me 06/08/17 10:31 Abx, will d/c drains tomorrow, and can go home tomorrow , have given Rx for celebrex and oxycodone, home PT would be helpful, asa 81 mg daily after D/c 06/09/17 09:05 Abx, likely in through wk end to get another PIC line Objective: Vital Signs Temp Pulse Resp BP Pulse Ox 37.4 C 80 18 103/60 94 06/09/17 07:36 06/09/17 07:36 06/09/17 07:36 06/09/17 07:36 06/09/17 07:36 Microbiology 06/06/17 14:33 Blood Panel (PCR) - Final Blood S.aureus Methicillin Suscept. Laboratory Results 06/09/17 04:11 06/09/17 04:11 06/08/17 06/09/17 06/10/17 05:59 05:59 04:59 Intake Total 1600 1480 Output Total 2490 3526 Balance -2186 -8421 ICD10 Worksheet Patient Problems: Problems Problem Status Onset Degenerative joint disease of shoulder region Acute
--- NOTE | 2017-06-09 09:07 | SOAPPROG ---
SOAP Progress Note Assessment/Plan: Assessment: POD#1 wash out for septic right knee, drains are working, knee very painful, cefazolin for staph POD#2, WBC decreasing, dressing changed POD#3, still painful, but less so, drains removed, blood cult pos, so line removed Plan: 06/07/17 07:36 Abx, continue drains, oral pain meds:oxycodone, toradol is fine with me 06/08/17 10:31 Abx, will d/c drains tomorrow, and can go home tomorrow , have given Rx for celebrex and oxycodone, home PT would be helpful, asa 81 mg daily after D/c 06/09/17 09:05 Abx, likely in through wk end to get another PIC line Objective: Vital Signs Temp Pulse Resp BP Pulse Ox 37.4 C 80 18 103/60 94 06/09/17 07:36 06/09/17 07:36 06/09/17 07:36 06/09/17 07:36 06/09/17 07:36 Microbiology 06/06/17 14:33 Blood Panel (PCR) - Final Blood S.aureus Methicillin Suscept. Laboratory Results 06/09/17 04:11 06/09/17 04:11 06/08/17 06/09/17 06/10/17 05:59 05:59 04:59 Intake Total 1600 1480 Output Total 4718 7505 Balance -1774 -4181 ICD10 Worksheet Patient Problems: Problems Problem Status Onset Degenerative joint disease of shoulder region Acute
--- NOTE | 2017-06-09 09:07 | SOAPPROG ---
SOAP Progress Note Assessment/Plan: Assessment: POD#1 wash out for septic right knee, drains are working, knee very painful, cefazolin for staph POD#2, WBC decreasing, dressing changed POD#3, still painful, but less so, drains removed, blood cult pos, so line removed Plan: 06/07/17 07:36 Abx, continue drains, oral pain meds:oxycodone, toradol is fine with me 06/08/17 10:31 Abx, will d/c drains tomorrow, and can go home tomorrow , have given Rx for celebrex and oxycodone, home PT would be helpful, asa 81 mg daily after D/c 06/09/17 09:05 Abx, likely in through wk end to get another PIC line Objective: Vital Signs Temp Pulse Resp BP Pulse Ox 37.4 C 80 18 103/60 94 06/09/17 07:36 06/09/17 07:36 06/09/17 07:36 06/09/17 07:36 06/09/17 07:36 Microbiology 06/06/17 14:33 Blood Panel (PCR) - Final Blood S.aureus Methicillin Suscept. Laboratory Results 06/09/17 04:11 06/09/17 04:11 06/08/17 06/09/17 06/10/17 05:59 05:59 04:59 Intake Total 1600 1480 Output Total 3070 2031 Balance -1790 -4890 ICD10 Worksheet Patient Problems: Problems Problem Status Onset Degenerative joint disease of shoulder region Acute
[2017-06-09] MEDS: SENNOSIDES/DOCUSATE SODIUM TAB PO SCH ×2 (09:08→20:31)
--- NOTE | 2017-06-09 10:30 | PDIAF ---
- Diagnosis Diagnosis: Septic arthritis right knee Code Status: Full Code - Medication Management Discharge Medications: Medications to Continue on Transfer Herbals/Supplements -Info Only 1 ea PO DAILY #0 ea 01/20/14 [Last Taken 11/13/16 ] Multivitamins [Multivitamin (*)] 1 each PO DAILY 11/08/16 [Last Taken 06/05/17] Cholecalciferol Vit D3 [Vitamin D3 2000 units tab (OTC)] 2,000 units PO BID 08/22 [Last Taken 06/05/17] Venlafaxine Xr [Effexor Xr 75MG (*)] 150 mg PO DAILY 06/06/17 [Last Taken ] Dental Specialist Antibiotics: Cefazolin 2 g IV q.8 hours Dental Specialist Antibiotic Stop Date: 07/06/17 Discharge Medications: Refer to the Discharge Home Medication list for PRN reason. PICC Care - Routine: Yes - Labs/Radiology CBC w/diff Date: 06/11/17 (Weekly Q Sunday) CMP Date: 06/11/17 (Weekly Q Sunday) CRP Date: 06/11/17 (Weekly Q Sunday) Call or Fax Lab and Imaging Results to: Dr. Ngo [phone] - Follow Up Care Current Providers and Referrals: Arley Pantoja MD [Primary Care Provider] - Efren Ngo MD [Medical Doctor] - 06/13/17 11:00 am
--- NOTE | 2017-06-09 10:30 | PDIAF ---
- Diagnosis Diagnosis: Septic arthritis right knee Code Status: Full Code - Medication Management Discharge Medications: Medications to Continue on Transfer Herbals/Supplements -Info Only 1 ea PO DAILY #0 ea 01/20/14 [Last Taken 11/13/16 ] Multivitamins [Multivitamin (*)] 1 each PO DAILY 11/08/16 [Last Taken 06/05/17] Cholecalciferol Vit D3 [Vitamin D3 2000 units tab (OTC)] 2,000 units PO BID 08/22 [Last Taken 06/05/17] Venlafaxine Xr [Effexor Xr 75MG (*)] 150 mg PO DAILY 06/06/17 [Last Taken ] Unemployment Insurance Hearing Officer Antibiotics: Cefazolin 2 g IV q.8 hours Unemployment Insurance Hearing Officer Antibiotic Stop Date: 07/06/17 Discharge Medications: Refer to the Discharge Home Medication list for PRN reason. PICC Care - Routine: Yes - Labs/Radiology CBC w/diff Date: 06/11/17 (Weekly Q Sunday) CMP Date: 06/11/17 (Weekly Q Sunday) CRP Date: 06/11/17 (Weekly Q Sunday) Call or Fax Lab and Imaging Results to: Dr. Ngo [phone] - Follow Up Care Current Providers and Referrals: Arley Pantoja MD [Primary Care Provider] - Efren Ngo MD [Medical Doctor] - 06/13/17 11:00 am
--- NOTE | 2017-06-09 10:30 | PDIAF ---
- Diagnosis Diagnosis: Septic arthritis right knee Code Status: Full Code - Medication Management Discharge Medications: Medications to Continue on Transfer Herbals/Supplements -Info Only 1 ea PO DAILY #0 ea 01/20/14 [Last Taken 11/13/16 ] Multivitamins [Multivitamin (*)] 1 each PO DAILY 11/08/16 [Last Taken 06/05/17] Cholecalciferol Vit D3 [Vitamin D3 2000 units tab (OTC)] 2,000 units PO BID 08/22 [Last Taken 06/05/17] Venlafaxine Xr [Effexor Xr 75MG (*)] 150 mg PO DAILY 06/06/17 [Last Taken ] Coal Handling Supervisor Antibiotics: Cefazolin 2 g IV q.8 hours Coal Handling Supervisor Antibiotic Stop Date: 07/06/17 Discharge Medications: Refer to the Discharge Home Medication list for PRN reason. PICC Care - Routine: Yes - Labs/Radiology CBC w/diff Date: 06/11/17 (Weekly Q Sunday) CMP Date: 06/11/17 (Weekly Q Sunday) CRP Date: 06/11/17 (Weekly Q Sunday) Call or Fax Lab and Imaging Results to: Dr. Ngo [phone] - Follow Up Care Current Providers and Referrals: Arley Pantoja MD [Primary Care Provider] - Efren Ngo MD [Medical Doctor] - 06/13/17 11:00 am
--- NOTE | 2017-06-09 10:37 | PCMIDPN ---
Assessment/Plan: 1. Right knee postoperative septic arthritis with concomitant bacteremia secondary to MSSA: Repeat blood culture pending. Suspect this will be negative and can insert a new PICC line tomorrow. Will likely go home on Sunday. Changed antibiotic stop date to July 06, or 4 weeks after negative blood culture.(am assuming blood culture drawn yesterday will be negative). Continue Ancef. TTE negative. 06/09/17 10:36 Subjective: TTE negative. PICC line removed and repeat blood culture pending. No complaints today. Pain under better control. Drains removed by Dr. Kearns this morning. Objective: Ancef 2 g IV q.8 hours stop date July 06 T-max 37degrees for Vital Signs Temp Pulse Resp BP Pulse Ox 37.4 C 80 18 103/60 94 06/09/17 07:36 06/09/17 07:36 06/09/17 07:36 06/09/17 07:36 06/09/17 07:36 Microbiology 06/06/17 14:33 Blood Panel (PCR) - Final Blood S.aureus Methicillin Suscept. Laboratory Results 06/09/17 04:11 06/09/17 04:11 06/08/17 06/09/17 06/10/17 05:59 05:59 04:59 Intake Total 1600 1480 Output Total 3230 3265 Balance -1630 -1785 C-Reactive Protein 127.8 mg/L (<10.0) H 06/07/17 04:25 Repeat blood culture June 08 pending Blood culture June 0608/09 bottles MSSA - Physical Exam General Appearance: alert, no apparent distress EENT: pharynx normal, No thrush Respiratory: lungs clear Cardiac/Chest: regular rate, rhythm, No systolic murmur Extremities: other (Right knee wrapped; I did not take down the dressing as Dr. Kearns had done so this morning.) Abdomen: non-tender, soft Skin: No rash ICD10 Worksheet Patient Problems: Problems Problem Status Onset Degenerative joint disease of shoulder region Acute
--- NOTE | 2017-06-09 13:53 | HOSPPROG ---
Hospitalist Progress Note Assessment/Plan: 71-year-old female presents with MSSA septic arthritis c/b MSSA bacteremia Plan: Septic arthritis of knee joint 2/2 MSSA -postop day [address] Jerad Kearns, drains removed this am -cont ancef, stop date 07/06 for total of 4 weeks -toradol, prn oxy for pain control -bowel regimen MSSA bacteremia. No e/o endocarditis on echo. - discussed with ID. Plan to replace PICC tomorrow if BCx's remain negative - 4 weeks ancef as above Depression. Stable, continue venlafaxine Pre-DM. Reviewed outside records (05/22/17 A1c 6.1%, Cr 0.7) -Cr wnl Diet. Regular Prophylaxis. High risk patient, lovenox 40 Code. Full Disposition. Cont inpt, likely dc 1-2 days if BCx's remain neg Subjective: Pt feels better. Pain is decreased. ROM improving. No fevers. She is ambulatory. Eating well. Objective: Vital Signs Temp Pulse Resp BP Pulse Ox 36.4 C 88 14 112/69 94 06/09/17 11:24 06/09/17 11:24 06/09/17 11:24 06/09/17 11:24 06/09/17 11:24 Microbiology 06/06/17 14:33 Blood Panel (PCR) - Final Blood S.aureus Methicillin Suscept. Laboratory Results 06/09/17 04:11 06/09/17 04:11 06/08/17 06/09/17 06/10/17 05:59 05:59 04:59 Intake Total 1600 1480 Output Total 3230 3265 Balance -1630 -1785 - Physical Exam Constitutional: no apparent distress Eyes: PERRL Ears, Nose, Mouth, Throat: moist mucous membranes Cardiovascular: regular rate and rhythym, no murmur, rub, or gallop Respiratory: no respiratory distress, clear to auscultation Gastrointestinal: normoactive bowel sounds, soft, non-tender abdomen Skin: warm Musculoskeletal: full muscle strength, other (RLE bandage with some drainage, mild swelling distal to right knee) Neurologic: AAOx3 Psychiatric: interacting appropriately ICD10 Worksheet Patient Problems: Problems Problem Status Onset Degenerative joint disease of shoulder region Acute
--- NOTE | 2017-06-09 14:52 | ASMTCMCOM ---
CM Note CM Note Notes: Reviewed chart for discharge plan, pt's progress. Per MD notes, drains removed by Dr. Kearns, awaiting new culture results, poss new PICC tomorrow ([place] 06/10/17). Pt to likely discharge 06/11/17 w/ [facility], [facility] and family support. CM will cont to follow. Current Discharge Plan: Home w/ Home Health Services - [facility] and [facility] for IV antibiotics Date Signed: 06/09/2017 02:52 PM Electronically Signed By:Malorie Garcia RN
[2017-06-10] MEDS: ONDANSETRON DISINTEGRATING 4 MG TAB PO PRN ×2 (03:36→14:03)
[2017-06-10] MEDS: ACETAMINOPHEN 325 MG TAB PO PRN ×3 (03:36→20:16)
[2017-06-10] MEDS: ceFAZolin 2 GM/DEXTROSE 100 ML IV SCH ×3 (05:22→22:18)
[2017-06-10] MEDS: KETOROLAC 15 MG/1 ML SDV IVP PRN ×3 (07:56→22:18)
[2017-06-10] MEDS: CHOLECALCIFEROL VIT D3 2,000 UNITS TAB/CAP PO SCH ×2 (07:59→20:24)
[2017-06-10] MEDS: ENOXAPARIN 40 MG/0.4 ML SYR SC SCH (07:59)
[2017-06-10] MEDS: MULTIVITAMINS 1 EACH TAB PO SCH ×2 (08:00→08:01)
[2017-06-10] MEDS: SENNOSIDES/DOCUSATE SODIUM TAB PO SCH ×2 (08:00→18:11)
[2017-06-10] MEDS: EFFEXOR 150 MG PO SCH (08:00)
--- NOTE | 2017-06-10 10:06 | SOAPPROG ---
SOAP Progress Note Assessment/Plan: Assessment: POD#1 wash out for septic right knee, drains are working, knee very painful, cefazolin for staph POD#2, WBC decreasing, dressing changed POD#3, still painful, but less so, drains removed, blood cult pos, so line removed POD#4, feeling better, better mobility, tolerates a small arc of motion, dressing changed Plan: 06/07/17 07:36 Abx, continue drains, oral pain meds:oxycodone, toradol is fine with me 06/08/17 10:31 Abx, will d/c drains tomorrow, and can go home tomorrow , have given Rx for celebrex and oxycodone, home PT would be helpful, asa 81 mg daily after D/c 06/09/17 09:05 Abx, likely in through wk end to get another PIC line 06/10/17 10:04 PIC line if cult neg, home maybe tomorrow Objective: Vital Signs Temp Pulse Resp BP Pulse Ox 37.3 C 94 16 102/74 96 06/10/17 07:08 06/10/17 07:08 06/10/17 07:08 06/10/17 07:08 06/10/17 07:08 Microbiology 06/06/17 14:33 Blood Panel (PCR) - Final Blood S.aureus Methicillin Suscept. Laboratory Results 06/09/17 04:11 06/09/17 04:11 06/09/17 06/10/17 06/11/17 06:59 05:59 05:59 Intake Total Output Total Balance ICD10 Worksheet Patient Problems: Problems Problem Status Onset Degenerative joint disease of shoulder region Acute
[2017-06-10] MEDS ORDERED: ALTEPLASE 2 MG VIAL IVP PRN (10:49)
--- NOTE | 2017-06-10 15:16 | HOSPPROG ---
Hospitalist Progress Note Assessment/Plan: 71-year-old female presents with MSSA septic arthritis c/b MSSA bacteremia Plan: Septic arthritis of knee joint 2/2 MSSA -postop day [address] Jerad Kearsn, drains removed -cont ancef, stop date 07/06 for total of 4 weeks -toradol, tylenol, prn oxy for pain control -bowel regimen MSSA bacteremia. No e/o endocarditis on echo. - discussed with ID, PICC today - 4 weeks ancef as above Depression. Stable, continue venlafaxine Pre-DM. Reviewed outside records (05/22/17 A1c 6.1%, Cr 0.7) -Cr wnl Diet. Regular Prophylaxis. High risk patient, lovenox 40 Code. Full Disposition. Cont inpt, likely dc in am if BCxs remain neg Subjective: Pt quite tired after PICC procedure. Notes decreasing pain. No fevers. Decreasing swelling of RLE. Still some drainage from knee wound. Objective: Vital Signs Temp Pulse Resp BP Pulse Ox 36.3 C 79 16 109/63 97 06/10/17 11:39 06/10/17 11:39 06/10/17 11:39 06/10/17 11:39 06/10/17 11:39 Microbiology 06/06/17 14:33 Blood Panel (PCR) - Final Blood S.aureus Methicillin Suscept. Laboratory Results 06/09/17 04:11 06/09/17 04:11 06/09/17 06/10/17 06/11/17 06:59 05:59 05:59 Intake Total Output Total Balance - Physical Exam Constitutional: no apparent distress Eyes: PERRL Ears, Nose, Mouth, Throat: moist mucous membranes Cardiovascular: regular rate and rhythym Respiratory: no respiratory distress Gastrointestinal: normoactive bowel sounds, soft, non-tender abdomen Skin: warm Musculoskeletal: other (RLE with decreased swelling, some serous drainage on dressing, ext warm, 2+ DP's) Neurologic: AAOx3 Psychiatric: interacting appropriately ICD10 Worksheet Patient Problems: Problems Problem Status Onset Degenerative joint disease of shoulder region Acute
[2017-06-10] MEDS: HYDROmorphONE/DILAUDID 1 MG/ML INJ IVP PRN (23:13)
[2017-06-11] MEDS: ACETAMINOPHEN 325 MG TAB PO PRN ×2 (01:54→09:55)
[2017-06-11] MEDS: KETOROLAC 15 MG/1 ML SDV IVP PRN ×2 (05:35→11:56)
[2017-06-11] MEDS: ceFAZolin 2 GM/DEXTROSE 100 ML IV SCH ×2 (05:36→12:27)
--- NOTE | 2017-06-11 08:26 | PDIAF ---
- Diagnosis Diagnosis: Septic arthritis right knee Code Status: Full Code - Medication Management Discharge Medications: Medications to Continue on Transfer Herbals/Supplements -Info Only 1 ea PO DAILY #0 ea 01/20/14 [Last Taken 11/13/16 ] Multivitamins [Multivitamin (*)] 1 each PO DAILY 11/08/16 [Last Taken 06/05/17] Cholecalciferol Vit D3 [Vitamin D3 2000 units tab (OTC)] 2,000 units PO BID 08/22 [Last Taken 06/05/17] Venlafaxine Xr [Effexor Xr 75MG (*)] 150 mg PO DAILY 06/06/17 [Last Taken ] Acetaminophen [Tylenol 325mg (*)] 975 mg PO Q8H PRN #90 tab 06/11/17 [Last Taken Unknown] Sennosides/Docusate Sodium [Senokot-S] 1 - 2 tab PO BID #60 tab 06/11/17 [Last Taken Unknown] Infrastructure Developer Antibiotics: Cefazolin 2 g IV q.8 hours Infrastructure Developer Antibiotic Stop Date: 07/06/17 Discharge Medications: Refer to the Discharge Home Medication list for PRN reason. PICC Care - Routine: Yes - Orders Services needed: Home Care, Registered Nurse, Physical Therapy Home Care Face to Face: I certify that this patient was under my care and that I had the required [id number] encounter meeting the encounter requirements on the discharge day. My findings support the fact that the patient is homebound as defined in Home Care Face to Face Continued: CMS Chapter 7 Medicare Benefits Manual 30.1.1 , The condition of the patient is such that there exists a normal inability to leave home and consequently, leaving home would require a considerable and taxing effort. Diet Recommendation: no restrictions on diet - Labs/Radiology CBC w/diff Date: 06/11/17 (Weekly Q Sunday) CMP Date: 06/11/17 (Weekly Q Sunday) CRP Date: 06/11/17 (Weekly Q Sunday) Call or Fax Lab and Imaging Results to: Dr. Ngo [phone] - Follow Up Care Current Providers and Referrals: Arley Pantoja MD [Primary Care Provider] - Efren Ngo MD [Medical Doctor] - 06/13/17 11:00 am Jerad Kearns MD [Medical Doctor] -
--- NOTE | 2017-06-11 08:26 | PDIAF ---
- Diagnosis Diagnosis: Septic arthritis right knee Code Status: Full Code - Medication Management Discharge Medications: Medications to Continue on Transfer Herbals/Supplements -Info Only 1 ea PO DAILY #0 ea 01/20/14 [Last Taken 11/13/16 ] Multivitamins [Multivitamin (*)] 1 each PO DAILY 11/08/16 [Last Taken 06/05/17] Cholecalciferol Vit D3 [Vitamin D3 2000 units tab (OTC)] 2,000 units PO BID 08/22 [Last Taken 06/05/17] Venlafaxine Xr [Effexor Xr 75MG (*)] 150 mg PO DAILY 06/06/17 [Last Taken ] Acetaminophen [Tylenol 325mg (*)] 975 mg PO Q8H PRN #90 tab 06/11/17 [Last Taken Unknown] Sennosides/Docusate Sodium [Senokot-S] 1 - 2 tab PO BID #60 tab 06/11/17 [Last Taken Unknown] Food Service Hotel Runner Antibiotics: Cefazolin 2 g IV q.8 hours Food Service Hotel Runner Antibiotic Stop Date: 07/06/17 Discharge Medications: Refer to the Discharge Home Medication list for PRN reason. PICC Care - Routine: Yes - Orders Services needed: Home Care, Registered Nurse, Physical Therapy Home Care Face to Face: I certify that this patient was under my care and that I had the required [id number] encounter meeting the encounter requirements on the discharge day. My findings support the fact that the patient is homebound as defined in Home Care Face to Face Continued: CMS Chapter 7 Medicare Benefits Manual 30.1.1 , The condition of the patient is such that there exists a normal inability to leave home and consequently, leaving home would require a considerable and taxing effort. Diet Recommendation: no restrictions on diet - Labs/Radiology CBC w/diff Date: 06/11/17 (Weekly Q Sunday) CMP Date: 06/11/17 (Weekly Q Sunday) CRP Date: 06/11/17 (Weekly Q Sunday) Call or Fax Lab and Imaging Results to: Dr. Ngo [phone] - Follow Up Care Current Providers and Referrals: Arley Pantoja MD [Primary Care Provider] - Efren Ngo MD [Medical Doctor] - 06/13/17 11:00 am Jerad Kearns MD [Medical Doctor] -
--- NOTE | 2017-06-11 08:26 | PDIAF ---
- Diagnosis Diagnosis: Septic arthritis right knee Code Status: Full Code - Medication Management Discharge Medications: Medications to Continue on Transfer Herbals/Supplements -Info Only 1 ea PO DAILY #0 ea 01/20/14 [Last Taken 11/13/16 ] Multivitamins [Multivitamin (*)] 1 each PO DAILY 11/08/16 [Last Taken 06/05/17] Cholecalciferol Vit D3 [Vitamin D3 2000 units tab (OTC)] 2,000 units PO BID 08/22 [Last Taken 06/05/17] Venlafaxine Xr [Effexor Xr 75MG (*)] 150 mg PO DAILY 06/06/17 [Last Taken ] Acetaminophen [Tylenol 325mg (*)] 975 mg PO Q8H PRN #90 tab 06/11/17 [Last Taken Unknown] Sennosides/Docusate Sodium [Senokot-S] 1 - 2 tab PO BID #60 tab 06/11/17 [Last Taken Unknown] Dockworker Antibiotics: Cefazolin 2 g IV q.8 hours Dockworker Antibiotic Stop Date: 07/06/17 Discharge Medications: Refer to the Discharge Home Medication list for PRN reason. PICC Care - Routine: Yes - Orders Services needed: Home Care, Registered Nurse, Physical Therapy Home Care Face to Face: I certify that this patient was under my care and that I had the required [id number] encounter meeting the encounter requirements on the discharge day. My findings support the fact that the patient is homebound as defined in Home Care Face to Face Continued: CMS Chapter 7 Medicare Benefits Manual 30.1.1 , The condition of the patient is such that there exists a normal inability to leave home and consequently, leaving home would require a considerable and taxing effort. Diet Recommendation: no restrictions on diet - Labs/Radiology CBC w/diff Date: 06/11/17 (Weekly Q Sunday) CMP Date: 06/11/17 (Weekly Q Sunday) CRP Date: 06/11/17 (Weekly Q Sunday) Call or Fax Lab and Imaging Results to: Dr. Ngo [phone] - Follow Up Care Current Providers and Referrals: Arley Pantoja MD [Primary Care Provider] - Efren Ngo MD [Medical Doctor] - 06/13/17 11:00 am Jerad Kearns MD [Medical Doctor] -
[2017-06-11 08:34] VITALS: BP 124/76; PULSE 88; RESP 18; TEMP 97.7; O2SAT 96
[2017-06-11] MEDS: MULTIVITAMINS 1 EACH TAB PO SCH (09:55)
[2017-06-11] MEDS: SENNOSIDES/DOCUSATE SODIUM TAB PO SCH (09:55)
[2017-06-11] MEDS: EFFEXOR 150 MG PO SCH (09:56)
[2017-06-11] MEDS: CHOLECALCIFEROL VIT D3 2,000 UNITS TAB/CAP PO SCH (09:57)
[2017-06-11] MEDS: ENOXAPARIN 40 MG/0.4 ML SYR SC SCH (09:59)
--- NOTE | 2017-06-11 10:11 | ASMTCMCOM ---
CM Note CM Note Notes: Met with patient to review dc plan of care. She is to go home with [facility] and [facility] Home infusion services, Will try to arranges dosing so she can have pm dose about 8pm . Call to [facility] and [facility] to alert them of discharge. Orders updated in allscripts. CM avaiable should needs arise. Date Signed: 06/11/2017 10:10 AM Electronically Signed By:Stephanie Taylor RN
--- NOTE | 2017-06-11 10:11 | ASMTCMCOM ---
CM Note CM Note Notes: Met with patient to review dc plan of care. She is to go home with [facility] and [facility] Home infusion services, Will try to arranges dosing so she can have pm dose about 8pm . [facility] and [facility] to alert them of discharge. Orders updated in allscripts. CM avaiable should needs arise. Date Signed: 06/11/2017 10:10 AM Electronically Signed By:Stephanie Taylor RN
--- NOTE | 2017-06-11 10:11 | ASMTCMCOM ---
CM Note CM Note Notes: Met with patient to review dc plan of care. She is to go home with [facility] and [facility] Home infusion services, Will try to arranges dosing so she can have pm dose about 8pm . Call to [facility] and [facility] to alert them of discharge. Orders updated in allscripts. CM avaiable should needs arise. Date Signed: 06/11/2017 10:10 AM Electronically Signed By:Stephanie Taylor RN
--- NOTE | 2017-06-11 11:54 | PDIAF ---
- Diagnosis Diagnosis: Septic arthritis right knee Code Status: Full Code - Medication Management Discharge Medications: Medications to Continue on Transfer Herbals/Supplements -Info Only 1 ea PO DAILY #0 ea 01/20/14 [Last Taken 11/13/16 ] Multivitamins [Multivitamin (*)] 1 each PO DAILY 11/08/16 [Last Taken 06/05/17] Cholecalciferol Vit D3 [Vitamin D3 2000 units tab (OTC)] 2,000 units PO BID 08/22 [Last Taken 06/05/17] Venlafaxine Xr [Effexor Xr 75MG (*)] 150 mg PO DAILY 06/06/17 [Last Taken ] Acetaminophen [Tylenol 325mg (*)] 975 mg PO Q8H PRN #90 tab 06/11/17 [Last Taken Unknown] Sennosides/Docusate Sodium [Senokot-S] 1 - 2 tab PO BID #60 tab 06/11/17 [Last Taken Unknown] Photogeologist Antibiotics: Cefazolin 2 g IV q.8 hours Photogeologist Antibiotic Stop Date: 07/06/17 Discharge Medications: Refer to the Discharge Home Medication list for PRN reason. PICC Care - Routine: Yes - Orders Services needed: Home Care, Registered Nurse, Physical Therapy Home Care Face to Face: I certify that this patient was under my care and that I had the required [id number] encounter meeting the encounter requirements on the discharge day. My findings support the fact that the patient is homebound as defined in Home Care Face to Face Continued: CMS Chapter 7 Medicare Benefits Manual 30.1.1 , The condition of the patient is such that there exists a normal inability to leave home and consequently, leaving home would require a considerable and taxing effort. Diet Recommendation: no restrictions on diet - Labs/Radiology CBC w/diff Date: 06/11/17 (Weekly Q Sunday) CMP Date: 06/11/17 (Weekly Q Sunday) CRP Date: 06/11/17 (Weekly Q Sunday) Call or Fax Lab and Imaging Results to: Dr. Ngo [phone] - Follow Up Care Current Providers and Referrals: Arley Pantoja MD [Primary Care Provider] - Jerad Kearns MD [Medical Doctor] - Efren Ngo MD [Medical Doctor] - follow up as scheduled
--- NOTE | 2017-06-11 11:54 | PDIAF ---
- Diagnosis Diagnosis: Septic arthritis right knee Code Status: Full Code - Medication Management Discharge Medications: Medications to Continue on Transfer Herbals/Supplements -Info Only 1 ea PO DAILY #0 ea 01/20/14 [Last Taken 11/13/16 ] Multivitamins [Multivitamin (*)] 1 each PO DAILY 11/08/16 [Last Taken 06/05/17] Cholecalciferol Vit D3 [Vitamin D3 2000 units tab (OTC)] 2,000 units PO BID 08/22 [Last Taken 06/05/17] Venlafaxine Xr [Effexor Xr 75MG (*)] 150 mg PO DAILY 06/06/17 [Last Taken ] Acetaminophen [Tylenol 325mg (*)] 975 mg PO Q8H PRN #90 tab 06/11/17 [Last Taken Unknown] Sennosides/Docusate Sodium [Senokot-S] 1 - 2 tab PO BID #60 tab 06/11/17 [Last Taken Unknown] 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 PICC Care - Routine: Yes - Orders Services needed: Home Care, Registered Nurse, Physical Therapy Home Care Face to Face: I certify that this patient was under my care and that I had the required [id number] encounter meeting the encounter requirements on the discharge day. My findings support the fact that the patient is homebound as defined in Home Care Face to Face Continued: CMS Chapter 7 Medicare Benefits Manual 30.1.1 , The condition of the patient is such that there exists a normal inability to leave home and consequently, leaving home would require a considerable and taxing effort. Diet Recommendation: no restrictions on diet - Labs/Radiology CBC w/diff Date: 06/11/17 (Weekly Q Sunday) CMP Date: 06/11/17 (Weekly Q Sunday) CRP Date: 06/11/17 (Weekly Q Sunday) Call or Fax Lab and Imaging Results to: Dr. Ngo [phone] - Follow Up Care Current Providers and Referrals: Arley Pantoja MD [Primary Care Provider] - Jerad Kearns MD [Medical Doctor] - Efren Ngo MD [Medical Doctor] - follow up as scheduled
--- NOTE | 2017-06-11 11:54 | PDIAF ---
- Diagnosis Diagnosis: Septic arthritis right knee Code Status: Full Code - Medication Management Discharge Medications: Medications to Continue on Transfer Herbals/Supplements -Info Only 1 ea PO DAILY #0 ea 01/20/14 [Last Taken 11/13/16 ] Multivitamins [Multivitamin (*)] 1 each PO DAILY 11/08/16 [Last Taken 06/05/17] Cholecalciferol Vit D3 [Vitamin D3 2000 units tab (OTC)] 2,000 units PO BID 08/22 [Last Taken 06/05/17] Venlafaxine Xr [Effexor Xr 75MG (*)] 150 mg PO DAILY 06/06/17 [Last Taken ] Acetaminophen [Tylenol 325mg (*)] 975 mg PO Q8H PRN #90 tab 06/11/17 [Last Taken Unknown] Sennosides/Docusate Sodium [Senokot-S] 1 - 2 tab PO BID #60 tab 06/11/17 [Last Taken Unknown] Pbx Inspector Antibiotics: Cefazolin 2 g IV q.8 hours Pbx Inspector Antibiotic Stop Date: 07/06/17 Discharge Medications: Refer to the Discharge Home Medication list for PRN reason. PICC Care - Routine: Yes - Orders Services needed: Home Care, Registered Nurse, Physical Therapy Home Care Face to Face: I certify that this patient was under my care and that I had the required [id number] encounter meeting the encounter requirements on the discharge day. My findings support the fact that the patient is homebound as defined in Home Care Face to Face Continued: CMS Chapter 7 Medicare Benefits Manual 30.1.1 , The condition of the patient is such that there exists a normal inability to leave home and consequently, leaving home would require a considerable and taxing effort. Diet Recommendation: no restrictions on diet - Labs/Radiology CBC w/diff Date: 06/11/17 (Weekly Q Sunday) CMP Date: 06/11/17 (Weekly Q Sunday) CRP Date: 06/11/17 (Weekly Q Sunday) Call or Fax Lab and Imaging Results to: Dr. Ngo [phone] - Follow Up Care Current Providers and Referrals: Arley Pantoja MD [Primary Care Provider] - Jerad Kearns MD [Medical Doctor] - Efren Ngo MD [Medical Doctor] - follow up as scheduled
--- NOTE | 2017-06-11 11:57 | PCMIDPN ---
Assessment/Plan: Assessment/Plan: * Postoperative right knee septic arthritis due to MSSA status post incision and drainage with concomitant MSSA bacteremia: Bacteremia has cleared. PICC line was changed due to presence of bacteremia. Plan 4 weeks of cefazolin post negative blood cultures with stop date of 07/06/2017. Patient will follow-up with me in the office on 06/20/2017 at 1:00 p.m.. Plan weekly laboratories while on antibiotic therapy. 06/11/17 11:55 Subjective: Patient feels significantly improved with less knee pain and improved range of motion. Patient's blood cultures last week ultimately with 1 set showing MSSA. Objective: Vital Signs Temp Pulse Resp BP Pulse Ox 36.5 C 88 18 124/76 H 96 06/11/17 08:00 06/11/17 08:00 06/11/17 08:00 06/11/17 08:00 06/11/17 08:00 Microbiology 06/06/17 14:33 Blood Panel (PCR) - Final Blood S.aureus Methicillin Suscept. Laboratory Results 06/09/17 04:11 06/09/17 04:11 06/10/17 06/11/17 06/12/17 05:59 05:59 05:59 Intake Total 400 Output Total 1725 Balance -1325 C-Reactive Protein 127.8 mg/L (<10.0) H 06/07/17 04:25 Blood cultures 06/08/2017 no growth - Physical Exam General Appearance: alert, no apparent distress EENT: No scleral icterus Cardiac/Chest: regular rate, rhythm, No systolic murmur Extremities: inflammation (Right knee with mild warmth present; no erythema or drainage; no pain with range of motion) - Line/s RUE PICC Lines: No drainage, No erythema ICD10 Worksheet Patient Problems: Problems Problem Status Onset Degenerative joint disease of shoulder region Acute
--- NOTE | 2017-06-11 12:52 | SOAPPROG ---
SOAP Progress Note Assessment/Plan: Assessment: POD#1 wash out for septic right knee, drains are working, knee very painful, cefazolin for staph POD#2, WBC decreasing, dressing changed POD#3, still painful, but less so, drains removed, blood cult pos, so line removed POD#4, feeling better, better mobility, tolerates a small arc of motion, dressing changed POD#5, new PIC in, knee moving better Plan: 06/07/17 07:36 Abx, continue drains, oral pain meds:oxycodone, toradol is fine with me 06/08/17 10:31 Abx, will d/c drains tomorrow, and can go home tomorrow , have given Rx for celebrex and oxycodone, home PT would be helpful, asa 81 mg daily after D/c 06/09/17 09:05 Abx, likely in through wk end to get another PIC line 06/10/17 10:04 PIC line if cult neg, home maybe tomorrow 06/11/17 12:50 D/C home later today, has f/u appt with [facility] Objective: Vital Signs Temp Pulse Resp BP Pulse Ox 36.5 C 88 18 124/76 H 96 06/11/17 08:00 06/11/17 08:00 06/11/17 08:00 06/11/17 08:00 06/11/17 08:00 Microbiology 06/06/17 14:33 Blood Panel (PCR) - Final Blood S.aureus Methicillin Suscept. Laboratory Results 06/09/17 04:11 06/09/17 04:11 06/10/17 06/11/17 06/12/17 05:59 05:59 05:59 Intake Total 400 Output Total 1725 Balance -1325 ICD10 Worksheet Patient Problems: Problems Problem Status Onset Degenerative joint disease of shoulder region Acute
--- NOTE | 2017-06-11 14:19 | ASDISCHSUM ---
Discharge Information Plan Status:Home with Home Health Medically Cleared to Leave:06/10/2017 Discharge Date:06/11/2017 01:35 PM CM D/C Disposition:Home Health Service ADT D/C Disposition:Home Health Service Projected Discharge Date:06/08/2017 11:00 AM Transportation at D/C:Family Discharge Delay Reason: Follow-Up Date:06/08/2017 11:00 AM Discharge Slot: Final Diagnosis:MSSA septic arthritis knee joint, depression, pre-DM Placement Information Referral Type:Home Infusion Referral ID:[id number] Provider Name:[facility] Address 1:[address] Address 2: City:[place] Selection Factors: State:[place] Patient Contact Information Contact Name:RUSSELL Relationship: Address:[address] [facility] City:[facility] Phone: State/Zip Code:[place] [address] Email: Financial Information Financial Class: Primary Plan Desc:MEDICARE INPATIENT Primary Plan Number:[id number] Secondary Plan Desc:AARP/MDR SUPPLEMENT Secondary Plan Number:[id number] Assessment Information BC CM Progress Note CM Note CM Note Notes: Spoke w/, pt will need IV abx for 4-6 weeks, wants to do them at home, Sheryl at [facility] notified and met with pt, dc likely tomorrow. Current DC Plan: Home infusion w/[facility] and [facility] for RN/PT Date Signed: 06/07/2017 03:17 PM Electronically Signed By:Ning Cornejo RN [facility] CM Progress Note CM Note CM Note Notes: Spoke w/, pt needs repeat blood cxs drawn, PICC line changed and an echo. Will not dc today, Sheryl from [facility] and Vaishnavi from [facility] notified. Current Discharge Plan: Home w/[facility] and [facility] (RN/PT) Date Signed: 06/08/2017 01:44 PM Electronically Signed By:Ning Cornejo RN [facility] CM Progress Note CM Note CM Note Notes: Reviewed chart for discharge plan, pt's progress. Per notes, drains removed by Dr. Kearns, awaiting new culture results, poss new PICC tomorrow ([place] 06/10/17). Pt to likely discharge 06/11/17 w/ [facility], [facility] and family support. CM will cont to follow. Current Discharge Plan: Home w/ Home Health Services - [facility] ([facility]) and [facility] for IV antibiotics Date Signed: 06/09/2017 02:52 PM Electronically Signed By:Malorie Garcia RN [facility] CM Progress Note CM Note CM Note Notes: Met with patient to review dc plan of care. She is to go home with [facility] and [facility], Will try to arranges dosing so she can have pm dose about 8pm . Call to [facility] and [facility] to alert them of discharge. Orders updated in allscripts. CM avaiable should needs arise. Date Signed: 06/11/2017 10:10 AM Electronically Signed By:Stephanie Taylor RN Intervention Information Intervention Type:*BEASLEY-Signed Date of Service:06/07/2017 09:24 AM Patient Type:Observation Staff Member:Gayla Schwarz Hours: Discipline: Severity: Comment: Intervention Type:*IM-Signed Date of Service:06/11/2017 09:17 AM Patient Type:Inpatient Staff Member:Gayla Schwarz Hours: Discipline: Severity: Comment:
--- NOTE | 2017-06-11 14:19 | ASDISCHSUM ---
Discharge Information Plan Status:Home with Home Health Medically Cleared to Leave:06/10/2017 Discharge Date:06/11/2017 01:35 PM CM D/C Disposition:Home Health Service ADT D/C Disposition:Home Health Service Projected Discharge Date:06/08/2017 11:00 AM Transportation at D/C:Family Discharge Delay Reason: Follow-Up Date:06/08/2017 11:00 AM Discharge Slot: Final Diagnosis:MSSA septic arthritis knee joint, depression, pre-DM Placement Information Referral Type:Home Infusion Referral ID:[id number] Provider Name:[facility] ([facility] Address 1:[address] Address 2: City:[place] Selection Factors: State:[place] Patient Contact Information Contact Name:RUSSELL Relationship: Address:[facility] [facility] City:[facility] Phone: State/Zip Code:[place] [address] Email: Financial Information Financial Class: Primary Plan Desc:MEDICARE INPATIENT Primary Plan Number:[id number] Secondary Plan Desc:AARP/MDR SUPPLEMENT Secondary Plan Number:[id number] Assessment Information BC CM Progress Note CM Note CM Note Notes: Spoke w/, pt will need IV abx for 4-6 weeks, wants to do them at home, Sheryl at [facility] notified and met with pt, dc likely tomorrow. Current DC Plan: Home infusion w/[facility] for RN/PT Date Signed: 06/07/2017 03:17 PM Electronically Signed By:Ning Cornejo RN [facility] CM Progress Note CM Note CM Note Notes: Spoke w/, pt needs repeat blood cxs drawn, PICC line changed and an echo. Will not dc today, Sheryl from [facility] and Vaishnavi from [facility] notified. Current Discharge Plan: Home w/[facility] and [facility] (RN/PT) Date Signed: 06/08/2017 01:44 PM Electronically Signed By:Ning Cornejo RN [facility] CM Progress Note CM Note CM Note Notes: Reviewed chart for discharge plan, pt's progress. Per notes, drains removed by Dr. Kearns, awaiting new culture results, poss new PICC tomorrow ([place] 06/10/17). Pt to likely discharge 06/11/17 w/ [facility], [facility] and family support. CM will cont to follow. Current Discharge Plan: Home w/ Home Health Services - [facility] ([facility]) and [facility] for IV antibiotics Date Signed: 06/09/2017 02:52 PM Electronically Signed By:Malorie Garcia RN [facility] CM Progress Note CM Note CM Note Notes: Met with patient to review dc plan of care. She is to go home with [facility] and [facility], Will try to arranges dosing so she can have pm dose about 8pm . Call to [facility] and [facility] to alert them of discharge. Orders updated in allscripts. CM avaiable should needs arise. Date Signed: 06/11/2017 10:10 AM Electronically Signed By:Stephanie Taylor RN Intervention Information Intervention Type:*BEASLEY-Signed Date of Service:06/07/2017 09:24 AM Patient Type:Observation Staff Member:Gayla Schwarz Hours: Discipline: Severity: Comment: Intervention Type:*IM-Signed Date of Service:06/11/2017 09:17 AM Patient Type:Inpatient Staff Member:Gayla Schwarz Hours: Discipline: Severity: Comment:
--- NOTE | 2017-06-11 14:19 | ASDISCHSUM ---
Discharge Information Plan Status:Home with Home Health Medically Cleared to Leave:06/10/2017 Discharge Date:06/11/2017 01:35 PM CM D/C Disposition:Home Health Service ADT D/C Disposition:Home Health Service Projected Discharge Date:06/08/2017 11:00 AM Transportation at D/C:Family Discharge Delay Reason: Follow-Up Date:06/08/2017 11:00 AM Discharge Slot: Final Diagnosis:MSSA septic arthritis knee joint, depression, pre-DM Placement Information Referral Type:Home Infusion Referral ID:[id number] Provider Name:[facility] Address 1:[address] Address 2: City:[place] Selection Factors: State:[place] Patient Contact Information Contact Name:RUSSELL Relationship: Address:[facility] City:[facility] Phone: State/Zip Code:[place] [address] Email: Financial Information Financial Class: Primary Plan Desc:MEDICARE INPATIENT Primary Plan Number:[id number] Secondary Plan Desc:AARP/MDR SUPPLEMENT Secondary Plan Number:[id number] Assessment Information BC CM Progress Note CM Note CM Note Notes: Spoke w/, pt will need IV abx for 4-6 weeks, wants to do them at home, Sheryl at [facility] notified and met with pt, dc likely tomorrow. Current DC Plan: Home infusion w/[facility] for RN/PT Date Signed: 06/07/2017 03:17 PM Electronically Signed By:Ning Cornejo RN [facility] CM Progress Note CM Note CM Note Notes: Spoke w/, pt needs repeat blood cxs drawn, PICC line changed and an echo. Will not dc today, Sheryl from [facility] and Vaishnavi from [facility] notified. Current Discharge Plan: Home w/[facility] and [facility] (RN/PT) Date Signed: 06/08/2017 01:44 PM Electronically Signed By:Ning Cornejo RN [facility] CM Progress Note CM Note CM Note Notes: Reviewed chart for discharge plan, pt's progress. Per notes, drains removed by Dr. Kearns, awaiting new culture results, poss new PICC tomorrow ([place] 06/10/17). Pt to likely discharge 06/11/17 w/ [facility], [facility] and family support. CM will cont to follow. Current Discharge Plan: Home w/ Home Health Services - [facility] ([facility]) and [facility] for IV antibiotics Date Signed: 06/09/2017 02:52 PM Electronically Signed By:Malorie Garcia RN [facility] CM Progress Note CM Note CM Note Notes: Met with patient to review dc plan of care. She is to go home with [facility] and [facility], Will try to arranges dosing so she can have pm dose about 8pm . Call to [facility] and [facility] to alert them of discharge. Orders updated in allscripts. CM avaiable should needs arise. Date Signed: 06/11/2017 10:10 AM Electronically Signed By:Stephanie Taylor RN Intervention Information Intervention Type:*BEASLEY-Signed Date of Service:06/07/2017 09:24 AM Patient Type:Observation Staff Member:Gayla Schwarz Hours: Discipline: Severity: Comment: Intervention Type:*IM-Signed Date of Service:06/11/2017 09:17 AM Patient Type:Inpatient Staff Member:Gayla Schwarz Hours: Discipline: Severity: Comment:
--- NOTE | 2017-06-11 14:20 | GDS ---
[f rep st] DISCHARGE SUMMARY DISCHARGE DIAGNOSES: 1. Methicillin-susceptible Staphylococcus aureus bacteremia. 2. Septic arthritis of the right knee, secondary to methicillin-susceptible Staphylococcus aureus. 3. Depression. CONSULTANTS: 1. Efren Ngo MD, Infectious Disease. 2. Jerad Kearns MD, orthopedic surgery. IMAGING/PROCEDURES: 1. PICC line insertion, June 07, 2017. 2. Second PICC line insertion, June 10, 2017. 3. Echocardiogram June 08 showed normal LV function with an EF of 77% without wall motion abnorma lity and normal diastolic function. No significant valve disease. HISTORY: For details, please see the history and physical dated June 06, 2017. In brief, the murray jensen is a 71-year-old female, who underwent arthroscopic knee surgery 1 week prior to admission. Elizabeth roximately 5 days postoperatively she developed right knee pain and swelling. She was seen by her or thopedic surgeon in the clinic and a knee effusion was noted. This was aspirated revealing a 57,000 white cells with 98% neutrophils. She was admitted to the hospital for further management of septic arthritis. HOSPITAL COURSE: The patient was admitted to the Med/Surg unit. She underwent incision and drainage by Dr. Jerad Kearns. Both her knee aspirate and blood cultures grew methicillin-susceptible Staph a ureus. Infectious Disease consult was obtained. She has been treated with cefazolin 2 g IV q.8 hour s. A PICC line was placed. This was ultimately removed and replaced due to concern for initial plac ement being done while she was bacteremic. Repeat blood cultures were negative and her PICC line was replaced at that point. She has been afebrile. Her exam has continued to improved with decreased s welling and decreased pain. She will be discharged home with a PICC line for IV antibiotics via home infusion with a stop date of July 06. She will follow up with Infectious Disease and Orthopedi c Surgeon. DISPOSITION: Patient is discharged home with home health care RN and PT for ongoing IV antibiotics v ia home infusion. FOLLOWUP: 1. Dr. Jerad Kearns, orthopedic surgery. 2. Dr. Efren Ngo, infectious disease, with whom she has an appointment, June 20 at 1:00 p.m. She will have weekly labs with results to Infectious Disease. DISCHARGE MEDICATIONS: Please see Social IQ (Social Influence Quotient) for complete updated outpatient medication list. New med ications on discharge include Tylenol 1 g p.o. q.8 hours p.r.n., Senokot 1-2 tablets p.o. twice daily . She already has a prescription for oxycodone and Celebrex from her orthopedic surgeon. /[id number]/MODL
== END 2017-06-11 13:35 | disposition home health service (06) | DRG 549 ==
LOC: F3E 12:25 → OBSVTOIN 06-07 14:47
PROVIDERS: ADMIT Internal Medicine; ATTEND Internal Medicine
PROC: 02HV33Z Insertion of Infusion Device into Superior Vena Cava, Percutaneous Approach (ICD-10-PCS; principal; 2017-06-07)
PROC: 02HV33Z Insertion of Infusion Device into Superior Vena Cava, Percutaneous Approach (ICD-10-PCS; 2017-06-10)
DX: M00.061 Staphylococcal arthritis, right knee (principal); R78.81 Bacteremia; M19.90 Unspecified osteoarthritis, unspecified site; R73.03 Prediabetes; F32.9 Major depressive disorder, single episode, unspecified; Z96.611 Presence of right artificial shoulder joint; Z96.612 Presence of left artificial shoulder joint; Z98.1 Arthrodesis status
CPT/HCPCS: 97116-GP; 97162-GP; 97165-GO; 97530-GP; 97535-GO; C1751; G0378; G8978-GP-CI; G8978-GP-CK; G8979-GP-CI; G8980-GP-CI; G8987-GO-CI; G8988-GO-CI; G8989-GO-CI; J0690; J1170; J1650; J1885

== ENCOUNTER → 2017-09-06 | Outpatient (CLI) | payer OTHER, MEDICARE | LOC: FIMAGING 16:22 | PROVIDERS: ATTEND Family Medicine | DX: S22.42XA Multiple fractures of ribs, left side, initial encounter for closed fracture (principal) ==

== ENCOUNTER → 2018-05-13 | Outpatient (CLI) | payer OTHER, MEDICARE | LOC: FIMAGING 11:42 | PROVIDERS: ATTEND Family Medicine | DX: Z12.31 Encounter for screening mammogram for malignant neoplasm of breast (principal); Z80.3 Family history of malignant neoplasm of breast ==